=== PATIENT | male | born 1970 | race Caucasian/White ===

== ENCOUNTER 2023-09-01 06:53 | Outpatient (OUT) | payer BC, SELFPAY ==
[2023-09-01 07:13] LABS: Basophils Percent Auto 0.4 % (0.2-2.0); Eosinophils Absolute Auto 0.1 10^3/uL (0.0-0.7); Eosinophils Percent Auto 1.4 % (0.9-7.0); Hematocrit 42.4 % (42.0-54.0); Immature Granulocytes Abs Auto 0.01 10^3/uL (0.00-0.03); Immature Granulocytes Pct Auto 0.2 % (0.0-0.5); Lymphocytes Absolute Auto 2.1 10^3/uL (1.2-3.8); Lymphocytes Percent Auto 41.5 % (20.5-60.0); Mean Corpuscular Hemoglobin 30.8 pg (25.9-34.0); Mean Corpuscular Volume 93.4 fL (80.0-94.0); Mean Platelet Volume 11.1 fL (9.5-13.5); Monocytes Absolute Auto 0.5 10^3/uL (0.3-0.8); Monocytes Percent Auto 10.8 % (1.7-12.0); Neutrophils Absolute Auto 2.3 10^3/uL (1.4-6.5); Neutrophils Percent Auto 45.7 % (43.0-75.0); Platelet Count 192 10^3/uL (150-450); Red Blood Count 4.54 10^6/uL (4.70-6.10); Red Cell Distribution Width 12.7 % (11.0-15.0)
[2023-09-01 07:51] LABS: Alanine Aminotransferase 56 U/L (16-63); Albumin Globulin Ratio 0.8; Albumin Level 3.3 g/dL (3.4-5.0); Alkaline Phosphatase 56 U/L (46-116); Anion Gap 11.4; Aspartate Amino Transferase 32 U/L (15-37); BUN Creatinine Ratio 22.5; Bilirubin Total 0.3 mg/dL (0.2-1.0); Calcium 9.2 mg/dL (8.5-10.1); Carbon Dioxide 31.6 mmol/L (21.0-32.0); Chloride 102 mmol/L (98-107); Chol HDL Ratio 4.6; Cholesterol 204 mg/dL (<=200); Estimated GFR (African America >60 (>=60); Estimated GFR (Non-African Ame >60 (>=60); Globulin 4.1 g/dL; Glucose 107 mg/dL (74-106); HDL Cholesterol 44 mg/dL (40-60); Sodium 141 mmol/L (136-145); Total Protein 7.4 g/dL (6.4-8.2); Triglycerides 208 mg/dL (<=150); VLDL CHOLESTEROL 41.6 mg/dL
[2023-09-01 08:57] LABS: Free T4 0.82 ng/dL (0.76-1.46)
== END 2023-09-01 06:54 | disposition home or self-care (01) ==
LOC: LAB 06:53
PROVIDERS: PCP Family Medicine
DX: Z00.00 Encounter for general adult medical examination without abnormal findings (principal); I10 Essential (primary) hypertension; E78.2 Mixed hyperlipidemia; Z13.220 Encounter for screening for lipoid disorders; Z13.29 Encounter for screening for other suspected endocrine disorder; Z13.21 Encounter for screening for nutritional disorder; K21.9 Gastro-esophageal reflux disease without esophagitis; E55.9 Vitamin D deficiency, unspecified
CPT/HCPCS: 36415; 80053; 80061; 82306; 82607; 84439; 84443; 85025

== ENCOUNTER 2024-03-29 08:03 | Outpatient (OUT) | payer BC, SELFPAY ==
--- OUTSIDE RECORDS SUMMARY | 2024-03-29 08:10 | XMS_ITS | CCD ---
Author Organization [facility] Team Providers Care Locator Name Role Phone María Elena Teran Attending Unavailable ShadiuterbeckMaría Elena Admitting Unavailable KIEPERT, LUZ Admitting Unavailable KIEPERT, LUZ Attending Unavailable ANDINO, DR CHAPPELL Primary Care Unavailable KIEPERTLUZ Consulting Unavailable ANDINO, DR CHAPPELL Admitting Unavailable ANDINO, DR CHAPPELL Attending Unavailable ANDINO, DR CHAPPELL Primary Care Unavailable ANDINO, DR CHAPPELL Consulting Unavailable LAUSEEDWIN Attending Unavailable YESICA CUMMINGS Attending Unavailable Problems Problem Classification Problem Date Documented Da te Episodic/Chronic Disorders of lipid metabolism (4 sources) Mixed hyperlipidemia; Translations: [MIXED HYPERLIPIDEMIA] Onset: 07-01-2022 Chronic Essential hypertension (1 source) Essential (primary) hypertension; Translations: [ESSENTIAL PRIMARY HYPERTENSION] Onset: 07-05-2022 Chronic Unclassified (1 source) M54.2 - Cervicalgia; Translations: [M54.2 - Cervicalgia] Onset: 01-04-2019 Results Test Name Value Interpretation Reference Range Facil ity CBC AUTO DIFFon 09-16-2022 BASO # 0.0 103/ul Normal 0[facility]0-0.1 [facility] Comment on above: Performed By: #### C BC #### [facility] [address] [address] [address] Ramsey Telles Basophils/100 WBC (Bld) 0.2 % Normal 0.2-2.0 [facility] Comment on above: Performed By: #### C BC #### [facility] [address] [address] [address] Ramsey Telles EO # 0.1 103/ul Normal 0.0-0.7 [facility] Comment on above: Performed By: #### C BC #### [facility] [address] [place] [address] Dr. Ramsey Telles Eosinophils/100 WBC (Bld) 1.3 % Normal 0.9-7.0 [facility] Comment on above: Performed By: #### C BC #### [facility] [address] [place] [address] Dr. Ramsey Telles Erythrocyte distribution width (RBC) [Ratio] 12.8 % Normal 11.0-15.0 [facility] Comment on above: Performed By: #### C BC #### [facility] [address] [place] [address] Dr. Ramsey Telles Hematocrit (Bld) [Volume fraction] 41.9 % Critically low 42.0-54.0 [facility] Comment on above: Performed By: #### C BC #### [facility] [address] [place] [address] Dr. Ramsey Telles Hemoglobin (Bld) [Mass/Vol] 14.1 g/dL Normal 14.0-18.0 [facility] Comment on above: Performed By: #### C BC #### [facility] [address] [place] [address] Dr. Ramsey Telles IG # 0.01 10e3/ul Normal 0.00-0.03 [facility] Comment on above: Performed By: #### C BC #### [facility] [address] [place] [address] Dr. Ramsey Telles IG % 0.2 % Normal 0.0-0.5 [facility] Comment on above: Performed By: #### C BC #### [facility] [address] [place] [address] Dr. Ramsey Telles LYMPH # 1.9 103/ul Normal 1.2-3.8 [facility] Comment on above: Performed By: #### C BC #### [facility] [address] [place] [address] Dr. Ramsey Telles Lymphocytes/100 WBC (Bld) 40.3 % Normal 20.5-60.0 [facility] Comment on above: Performed By: #### C BC #### [facility] [address] [place] [address] Dr. Ramsey Telles MANUAL DIFF REQ NO Normal [facility] Comment on above: Performed By: #### C BC #### [facility] [address] [place] [address] Dr. Ramsey Telles MCH (RBC) [Entitic mass] 30.2 pg Normal 25.9-34.0 [facility] Comment on above: Performed By: #### C BC #### [facility] [address] [place] [address] Dr. Ramsey Telles MCHC (RBC) [Mass/Vol] 33.7 g/dL Normal 29.9-35.2 [facility] Comment on above: Performed By: #### C BC #### [facility] [address] [place] [address] Dr. Ramsey Telles MCV (RBC) [Entitic vol] 89.7 fL Normal 80.0-94.0 [facility] Comment on above: Performed By: #### C BC #### [facility] [address] [place] [address] Dr. Ramsey Telles MONO # 0.5 103/ul Normal 0.3-0.8 [facility] Comment on above: Performed By: #### C BC #### [facility] [address] [place] [address] Dr. Ramsey Telles Monocytes/100 WBC (Bld) 11.3 % Normal 1.7-12.0 [facility] Comment on above: Performed By: #### C BC #### [facility] [address] [place] [address] Dr. Ramsey Telles NEUT # 2.2 103/ul Normal 1.4-6.5 [facility] Comment on above: Performed By: #### C BC #### [facility] [address] [place] [address] Dr. Ramsey Telles Neutrophils/100 WBC (Bld) 46.7 % Normal 43.0-75.0 [facility] Comment on above: Performed By: #### C BC #### [facility] [address] [place] [address] Dr. Ramsey Telles Platelet mean volume (Bld) [Entitic vol] 10.8 fL Normal 9.5-13.5 [facility] Comment on above: Performed By: #### C BC #### [facility] [address] [place] [address] Dr. Ramsey Telles PLT 182 103/ul Normal 150-450 [facility] Comment on above: Performed By: #### C BC #### [facility] [address] [address] [address] Ramsey Telles RBC 4.67 106/ul Critically low 4.70-6.10 [facility] Comment on above: Performed By: #### C BC #### [facility] [address] [place] [address] Dr. Ramsey Telles WBC 4.6 103/ul Normal 4.0-11.0 [facility] Comment on above: Performed By: #### C BC #### [facility] [address] [place] [address] Dr. Ramsey Telles FERRITINon 09-16-2022 Ferritin [Mass/Vol] 323.0 ng/mL Normal 26.0-388.0 [facility] Comment on above: Performed By: #### F ETIBC, B12FOL, FERR #### [facility] [address] [place] [address] Dr. Ramsey Telles IRON AND TIBCon 09-16-2022 % SATURATION 30.0 % Normal [facility] Comment on above: Performed By: #### F ETIBC, B12FOL, FERR #### [facility] [address] [place] [address] Dr. Ramsey Telles Iron [Mass/Vol] 91.0 ug/dL Normal 65.0-175.0 [facility] Comment on above: Performed By: #### F ETIBC, B12FOL, FERR #### [facility] [address] [place] [address] Dr. Ramsey Telles TIBC DIRECT 303.0 ug/dL Normal 250.0-450.0 [facility] Comment on above: Performed By: #### F ETIBC, B12FOL, FERR #### [facility] [address] [place] [address] Dr. Ramsey Telles VIT B12 AND FOLATEon 023 Cobalamin (Vitamin B12) [Mass/Vol] 735.0 pg/mL Normal 193.0-986.0 [facility] Comment on above: Performed By: #### F ETIBC, B12FOL, FERR #### [facility] [address] [place] [address] Dr. Ramsey Telles FOLATE 16.70 ng/mL Normal 8.60-58.90 [facility] Comment on above: Performed By: #### F ETIBC, B12FOL, FERR #### [facility] [address] [place] [address] Dr. Ramsey Telles CBC AUTO DIFFon 07-01-2022 BASO # 0.0 103/ul Normal 0.0-0.1 [facility] Comment on above: Performed By: #### C BC #### [facility] [address] [place] [address] Dr. Ramsey Telles Basophils/100 WBC (Bld) 0.3 % Normal 0.2-2.0 [facility] Comment on above: Performed By: #### C BC #### [facility] [address] [place] [address] Dr. Ramsey Telles EO # 0.1 103/ul Normal 0.0-0.7 [facility] Comment on above: Performed By: #### C BC #### [facility] [address] [place] [address] Dr. Ramsey Telles Eosinophils/100 WBC (Bld) 1.3 % Normal 0.9-7.0 [facility] Comment on above: Performed By: #### C BC #### [facility] [address] [place] [address] Dr. Ramsey Telles Erythrocyte distribution width (RBC) [Ratio] 13.2 % Normal 11.0-15.0 [facility] Comment on above: Performed By: #### C BC #### [facility] [address] [place] [address] Dr. Ramsey Telles Hematocrit (Bld) [Volume fraction] 39.7 % Critically low 42.0-54.0 [facility] Comment on above: Performed By: #### C BC #### [facility] [address] [place] [address] Dr. Ramsey Telles Hemoglobin (Bld) [Mass/Vol] 13.5 g/dL Critically low 14.0-18.0 [facility] Comment on above: Performed By: #### C BC #### [facility] [address] [place] [address] Dr. Ramsey Telles IG # 0.01 10e3/ul Normal 0.00-0.03 [facility] Comment on above: Performed By: #### C BC #### [facility] [address] [place] [address] Dr. Ramsey Telles IG % 0.3 % Normal 0.0-0.5 [facility] Comment on above: Performed By: #### C BC #### [facility] [address] [place] [address] Dr. Ramsey Telles LYMPH # 1.7 103/ul Normal 1.2-3.8 [facility] Comment on above: Performed By: #### C BC #### [facility] [address] [place] [address] Dr. Ramsey Telles Lymphocytes/100 WBC (Bld) 44.1 % Normal 20.5-60.0 [facility] Comment on above: Performed By: #### C BC #### [facility] [address] [place] [address] Dr. Ramsey Telles MANUAL DIFF REQ NO Normal [facility] Comment on above: Performed By: #### C BC #### [facility] [address] [place] [address] Dr. Ramsey Telles MCH (RBC) [Entitic mass] 31.3 pg Normal 25.9-34.0 [facility] Comment on above: Performed By: #### C BC #### [facility] [address] [place] [address] Dr. Ramsey Telles MCHC (RBC) [Mass/Vol] 34.0 g/dL Normal 29.9-35.2 [facility] Comment on above: Performed By: #### C BC #### [facility] [address] [place] [address] Dr. Ramsey Telles MCV (RBC) [Entitic vol] 92.1 fL Normal 80.0-94.0 [facility] Comment on above: Performed By: #### C BC #### [facility] [address] [place] [address] Dr. Ramsey Telles MONO # 0.4 103/ul Normal 0.3-0.8 [facility] Comment on above: Performed By: #### C BC #### [facility] [address] [place] [address] Dr. Ramsey Telles Monocytes/100 WBC (Bld) 10.7 % Normal 1.7-12.0 [facility] Comment on above: Performed By: #### C BC #### [facility] [address] [place] [address] Dr. Ramsey Telles NEUT # 1.7 103/ul Normal 1.4-6.5 [facility] Comment on above: Performed By: #### C BC #### [facility] [address] [place] [address] Dr. Ramsey Telles Neutrophils/100 WBC (Bld) 43.3 % Normal 43.0-75.0 [facility] Comment on above: Performed By: #### C BC #### [facility] [address] [place] [address] Dr. Ramsey Telles Platelet mean volume (Bld) [Entitic vol] 11.0 fL Normal 9.5-13.5 [facility] Comment on above: Performed By: #### C BC #### [facility] [address] [place] [address] Dr. Ramsey Telles PLT 171 103/ul Normal 150-450 [facility] Comment on above: Performed By: #### C BC #### [facility] [address] [place] [address] Dr. Ramsey Telles RBC 4.31 106/ul Critically low 4.70-6.10 [facility] Comment on above: Performed By: #### C BC #### [facility] [address] [address] [address] Ramsey Telles WBC 3.8 103/ul Critically low 4.0-11.0 [facility] Comment on above: Performed By: #### C BC #### [facility] [address] [address] [address] Ramsey Telles FREE T4on 07-01-2022 Free T4 [Mass/Vol] 0.94 ng/dL Normal 0.76-1.46 [facility] Comment on above: Performed By: #### F T4, VITAD #### [facility] [address] [address] [address] Ramsey Telles LIPID PROFILEon 07-01-2022 CHOL-HDL RATIO NORM SEE BELOW Normal [facility] Comment on above: Result Comment: 3.3 - 4.4 LOW RISK 4.4 - 7.1 AVERAGE RISK 7.1 - 11.0 MODERATE RISK >11.0 HIGH RISK Performed By: #### L IPID, CMP, TSH #### [facility] [address] [address] [address] Ramsey Telles Cholesterol [Mass/Vol] 171 mg/dL Normal <=200 [facility] Comment on above: Performed By: #### L IPID, CMP, TSH #### [facility] [address] [address] [address] Ramsey Telles Cholesterol in HDL [Mass/Vol] 50 mg/dL Normal 40-60 [facility] Comment on above: Performed By: #### L IPID, CMP, TSH #### [facility] [address] [address] [address] Ramsey Telles Cholesterol in LDL [Mass/Vol] 108.4 mg/dL [facility] Comment on above: Performed By: #### L IPID, CMP, TSH #### [facility] [address] [address] [address] Ramsey Telles Cholesterol.total/C holesterol in HDL [Mass ratio] 3.4 {ratio} [facility] Comment on above: Performed By: #### L IPID, CMP, TSH #### [facility] [address] [address] [address] Ramsey Telles HDL NORMAL > or = 60 mg/dl - LOW CARDIOVASCULAR RISK <40 mg/dl - HIGH CARDIOVASCULAR RISK [facility] Comment on above: Performed By: #### L IPID, CMP, TSH #### [facility] [address] [address] [address] Ramsey Telles LDL CALC NORMAL SEE BELOW Normal [facility] Comment on above: Result Comment: <100 mg/dl OPTIMAL 100 - 129 mg/dl NEAR OR ABOVE OPTIMAL 130 - 159 mg/dl BORDERLINE HIGH 160 - 189 mg/dl HIGH >190 mg/dl VERY HIGH Performed By: #### L IPID, CMP, TSH #### [facility] [address] [address] [address] Ramsey Telles Triglyceride [Mass/Vol] 63 mg/dL Normal <=150 [facility] Comment on above: Performed By: #### L IPID, CMP, TSH #### [facility] [address] [address] [address] Ramsey Telles VLDL CALC 12.6 mg/dL [facility] Comment on above: Performed By: #### L IPID, CMP, TSH #### [facility] [address] [address] [address] Ramsey Telles PROF 14(COMP METB)on 022 Albumin [Mass/Vol] 3.6 g/dL Normal 3.4-5.0 [facility] Comment on above: Performed By: #### L IPID, CMP, TSH #### [facility] [address] [address] [address] Ramsey Telles Albumin/Globulin [Mass ratio] 1.1 {ratio} [facility] Comment on above: Performed By: #### L IPID, CMP, TSH #### [facility] [address] [address] [address] Ramsey Telles ALP [Catalytic activity/Vol] 45 U/L Critically low 46-116 [facility] Comment on above: Performed By: #### L IPID, CMP, TSH #### [facility] [address] [address] [address] Ramsey Telles ALT [Catalytic activity/Vol] 59 U/L Normal 16-63 [facility] Comment on above: Performed By: #### L IPID, CMP, TSH #### [facility] [address] [address] [address] Ramsey Telles Anion gap [Moles/Vol] 7.7 mmol/L [facility] Comment on above: Performed By: #### L IPID, CMP, TSH #### [facility] [address] [address] [address] Ramsey Telles AST [Catalytic activity/Vol] 35 U/L Normal 15-37 [facility] Comment on above: Performed By: #### L IPID, CMP, TSH #### [facility] [address] [address] [address] Ramsey Telles Bilirubin [Mass/Vol] 0.4 mg/dL Normal 0.2-1.0 [facility] Comment on above: Performed By: #### L IPID, CMP, TSH #### [facility] [address] [address] [address] Ramsey Telles Calcium [Mass/Vol] 8.7 mg/dL Normal 8.5-10.1 [facility] Comment on above: Performed By: #### L IPID, CMP, TSH #### [facility] [address] [address] [address] Ramsey Telles Chloride [Moles/Vol] 106 mmol/L Normal 98-107 [facility] Comment on above: Performed By: #### L IPID, CMP, TSH #### [facility] [address] [address] [address] Ramsey Telles CO2 [Moles/Vol] 32.3 mmol/L Critically high 21.0-32.0 [facility] Comment on above: Performed By: #### L IPID, CMP, TSH #### [facility] [address] [address] [address] Ramsey Telles Creatinine [Mass/Vol] 0.81 mg/dL Normal 0.70-1.30 [facility] Comment on above: Performed By: #### L IPID, CMP, TSH #### [facility] [address] [place] [address] Dr. Ramsey Telles EGFR-AF MOZAMBICAN >60 Normal >=60 [facility] Comment on above: Performed By: #### L IPID, CMP, TSH #### [facility] [address] [address] [address] Ramsey Telles EGFR-NON AF MOZAMBICAN >60 Normal >=60 [facility] Comment on above: Performed By: #### L IPID, CMP, TSH #### [facility] [address] [place] [address] Dr. Ramsey Telles Globulin (S) [Mass/Vol] 3.3 g/dL [facility] Comment on above: Performed By: #### L IPID, CMP, TSH #### [facility] [address] [place] [address] Dr. Ramsey Telles Glucose [Mass/Vol] 103 mg/dL Normal 74-106 [facility] Comment on above: Performed By: #### L IPID, CMP, TSH #### [facility] [address] [place] [address] Dr. Ramsey Telles Potassium [Moles/Vol] 4.0 mmol/L Normal 3.5-5.1 [facility] Comment on above: Performed By: #### L IPID, CMP, TSH #### [facility] [address] [place] [address] Dr. Ramsey Telles Protein [Mass/Vol] 6.9 g/dL Normal 6.4-8.2 [facility] Comment on above: Performed By: #### L IPID, CMP, TSH #### [facility] [address] [place] [address] Dr. Ramsey Telles Sodium [Moles/Vol] 142 mmol/L Normal 136-145 [facility] Comment on above: Performed By: #### L IPID, CMP, TSH #### [facility] [address] [place] [address] Dr. Ramsey Telles Urea nitrogen [Mass/Vol] 15.0 mg/dL Normal 7.0-18.0 [facility] Comment on above: Performed By: #### L IPID CMP, TSH #### [facility] [address] [address] [address] Ramsey Telles Urea nitrogen/Creatinine [Mass ratio] 18.5 mg/mg [facility] Comment on above: Performed By: #### L IPESTHELA CMP, TSH #### [facility] [address] [address] [address] Ramsey Telles TSHon 07-01-2022 TSH 1.371 uIU/mL Normal 0.358-3.740 [facility] Comment on above: Performed By: #### L IPID CMP, TSH #### [facility] [address] [address] [address] Ramsey Telles VITAMIN D 25 OHon 07-01-2022 VIT D 25-OH 44.2 ng/mL [facility] Comment on above: Performed By: #### F T4, VITAD #### [facility] [address] [place] [address] Dr. Ramsey Telles VIT D RANGES SEE BELOW [facility] Comment on above: Result Comment: <20 ng/mL Vit D deficient 20 - <30 ng/mL Vit D insufficient 30 - 100 ng/mL Vit D sufficient >100 ng/mL Potential Toxicity Performed By: #### F T4, VITAD #### [facility] [address] [place] [address] Dr. Ramsey Telles XR cervical spine 5V*on XR cervical spine 5V* [facility] [address] [place] [address] XRay Report Signed Patient: Fredo Luke MR#: [id number] : 1970 Acct:[id number] Age/Sex: 48 / M ADM Date: 01/04/19 Loc: XDUCLY Room: Type: [facility] Attending Dr: María Elena Teran VERIFICATION MANAGER, INTERACTIVE DESIGNER-C Ordering Provider: María Elena Teran APRN,[employer]UCATION TEACHER Date of Service: 01/04/19 XR/XR cervical spine 5V*: Neck pain on right side Copies to: María Elena Teran APRN, CNP Cervical spine 01/04/2019. CLINICAL DATA: Neck pain and stiffness. FINDINGS: 5 views of the cervical spine were obtained. There is loss of the normal cervical lordosis which could be related to muscle spasm or patient positioning. Vertebral alignment is normal and the intervertebral disc spaces are intact. Early discovertebral degenerative changes are identified at C4-C5. There is mild bony neural foraminal narrowing at this level on the right. No acute vertebral fracture is seen. The dens and the atlantoaxial junction are intact. No prevertebral soft tissue swelling is noted. XR/XR cervical spine 5V* IMPRESSION: Early degenerative changes at C4-C5. No acute bony abnormality. Impression dictated by: Toño Lopez Jr., M.D.01/04/2019 10:18 AM Dictation Location: [facility] Transcribed By: [facility] 01/04/19 1018 Dictated By: Toño Lopez Jr, MD 01/04/19 1015 Signed By: 01/04/19 1018 Normal [facility] Encounters Encounter Date Encounter Type Care Provider Facility Start: 03-18-2024 End: 03-18-2024 ambulatory YESICA CUMMINGS Not Available Start: 12-26-2023 End: 12-26-2023 ambulatory EDWIN KOHLER Not Available Start: 09-16-2022 End: 09-17-[address] AT ANDINO Facility:[facility] Start: 07-01-2022 End: 07-02-2022 ambulatory LUZ MARIE Facility:[facility] Start: 01-04-2019 End: 01-04-2019 Patient encounter procedure María Elena Teran Facility:[facility] Payers Date Payer Category Payer Self-pay 1970 Unknown [id number] [id number] [id number] 1970 Unknown [id number] 2.16.84 [id number] 1970 Unknown [id number] 2.16.84 [id number] 1970 Unknown [id number] 2.16.84 [id number] 1958 Unknown [id number] Unknown [id number] 2.16.84 [id number] Summary Purpose Family History No Family History Records FoundNo Family History Records FoundNo Family History Records Found Advance Directives No Advanced Directives Records FoundNo Advanced Directives Records FoundNo Advanced Directives Records Found Additional Source Comments (unrecognized sect ion and content) No Status Records FoundNo Status Records FoundNo Status Records Found INFORMATION SOURCE (unrecogn ized section and content) DATE CREATED AUTHOR 01/15/2019 [facility] DATE CREATED AUTHOR AUTHOR'S ORGANIZ ATION 09/16/2022 [facility] DATE CREATED AUTHOR AUTHOR'S ORGANIZ ATION 03/22/2024 [facility] FOR RECORDS PERTAINING TO PATIENTS WHO ARE OR HAVE BEEN ENROLLED IN A CHEMICAL DEPENDENCY/SUBSTANCEABUSE PROGRAM, SOME INFORMATION MAY BE OMITTED. This clinical summary was aggregated from multiple sources. Caution should be exercised in using it in the provision of clinical care. This summary normalizes information from multiple sources, and as a consequence, information in this document may materially change the coding, format and clinical context of patient data. In addition, data may be omitted in some cases. CLINICAL DECISIONS SHOULD BE BASED ON THE PRIMARY CLINICAL RECORDS. [facility] [employer] provides no warranty or guarantee of the accuracy or completeness of information in this document.
[2024-03-29 08:37] LABS: Basophils Percent Auto 0.6 % (0.2-2.0); Eosinophils Absolute Auto 0.1 10^3/uL (0.0-0.7); Eosinophils Percent Auto 1.2 % (0.9-7.0); Hematocrit 41.2 % (42.0-54.0); Hemoglobin 14.3 g/dL (14.0-18.0); Immature Granulocytes Abs Auto 0.01 10^3/uL (0.00-0.03); Immature Granulocytes Pct Auto 0.2 % (0.0-0.5); Lymphocytes Percent Auto 39.7 % (20.5-60.0); Mean Corpuscular HGB Conc 34.7 g/dL (29.9-35.2); Mean Corpuscular Hemoglobin 31.9 pg (25.9-34.0); Mean Platelet Volume 11.6 fL (9.5-13.5); Monocytes Absolute Auto 0.5 10^3/uL (0.3-0.8); Monocytes Percent Auto 9.5 % (1.7-12.0); Neutrophils Absolute Auto 2.5 10^3/uL (1.4-6.5); Neutrophils Percent Auto 48.8 % (43.0-75.0); Platelet Count 182 10^3/uL (150-450); Red Blood Count 4.48 10^6/uL (4.70-6.10); Red Cell Distribution Width 12.7 % (11.0-15.0)
[2024-03-29 09:15] LABS: Percent Iron Saturation 31.7 %
[2024-04-01 20:10] LABS: Free Testosterone(Direct) 4.3 pg/mL (7.2-24.0); Testosterone 413 ng/dL (264-916)
== END 2024-03-29 08:04 | disposition home or self-care (01) ==
PROVIDERS: PCP Family Medicine
DX: R53.83 Other fatigue (principal); E55.9 Vitamin D deficiency, unspecified
CPT/HCPCS: 36415; 82306; 82607; 83540; 83550; 84402; 84403; 85025

== ENCOUNTER 2024-07-18 16:17 | Outpatient (RCR) | payer BC, SELFPAY | END 2024-08-15 08:55 | disposition home or self-care (01) | LOC: PT 16:17 | PROVIDERS: PCP Family Medicine; Visit Provider Nurse Practitioner | DX: M54.32 Sciatica, left side (principal) | CPT/HCPCS: 97110; 97112; 97140; 97162 ==

== ENCOUNTER 2025-01-31 06:59 | Outpatient (OUT) | payer BC, SELFPAY ==
--- OUTSIDE RECORDS SUMMARY | 2025-01-27 16:05 | XMS_ITS | Encounter Summary ---
Author Organization [facility] Address [address] [place] [address] Care Team Providers Care Industrial Servicer Name Role Phone Oscar Rodriguez MD Primary Care Provider [phone] Jonna Boone BRAND SPECIALIST Unavailable [phone] Angela Serna MD Unavailable [phone] ShellMatti DO Unavailable [phone] Encounter Details Date Type Department Care Team (Late st Contact Info) Description 01/27/2025 4:05 PM EDT Office Visit [facility] [address] [facility] [address] [place] [phone] Angela Serna MD [address] [facility] [address] [place] [address] Capillary angioma (Primary Dx); Actinic keratosis; Lentigines; History of SCC (squamous cell carcinoma) of skin; History of basal cell carcinoma Social History Tobacco Use Types Packs/Day Years Used Date Smoking Tobacco: Never Smokeless Tobacco: Never Alcohol Use Standard Drinks/Week Comments Not Currently 0 (1 standard drink = 0.6 oz pure alcohol) caffeine >4 cups/day; coffee/soda Humiliation, Afraid, Rape, and Kick questionnair e Answer Date Recorded Within the last year, have y ou been afraid of your partner or ex-partner? No 07/03/2023 Within the last year, have y ou been humiliated or emotionally abused in other ways by your partner or ex-partner? No Within the last year, have y ou been kicked, hit, slapped, or otherwise physically hurt by your partner or ex-partner? No 07/03/2023 Within the last year, have y ou been raped or forced to have any kind of sexual activity by your partner or ex-partner? No 07/03/2023 Social Connection and Isolat ion Panel [NHANES] Answer Date Recorded In a typical week, how many times do you talk on the phone with family, friends, or neighbors? More than three times a week 07/03/2023 How often do you get togethe r with friends or relatives? Patient declined 07/03/2023 How often do you attend chur or yazdanism services? Patient declined 07/03/2023 Do you belong to any clubs o r organizations such as islam groups, unions, fraternal or athletic groups, or school groups? Patient declined 07/03/2023 How often do you attend meet ings of the clubs or organizations you belong to? Patient declined 07/03/2023 Are you , , di vorced, , never , or living with a partner? 07/03/2023 AUDIT-C Answer Date Recorded Q1: How often do you have a drink containing alcohol? Never 01/07/2025 Q2: How many drinks containi ng alcohol do you have on a typical day when you are drinking? Patient does not drink Q3: How often do you have si x or more drinks on one occasion? Never 01/07/2025 Overall Financial Resource Strain (CARDIA) Answe r Date Recorded How hard is it for you to pa y for the very basics like food, housing, medical care, and heating? Not very hard 07/03/2023 PHQ-2 Answer Date Recorded Patient Health Questionnaire-2 Score 0 01/07/2025 [facility] - Occupational Stress Questionnaire Answer Date Recorded Do you feel stress - tense, restless, nervous, or anxious, or unable to sleep at night because your mind is troubled all the time - these days? Not at all 07/03/2023 Exercise Vital Sign Answer Date Recorde d On average, how many days pe r week do you engage in moderate to strenuous exercise (like a brisk walk)? 0 days 07/03/2023 On average, how many minutes do you engage in exercise at this level? 0 min 07/03/2023 Hunger Vital Sign Answer Date Recorded Within the past 12 months, y ou worried that your food would run out before you got the money to buy more. Never true 07/03/20 23 Within the past 12 months, t he food you bought just didn't last and you didn't have money to get more. Never true 07/03/2023 PRAPARE - Transportation Answer Date Re corded In the past 12 months, has l ack of transportation kept you from medical appointments or from getting medications? No 06/05 In the past 12 months, has l ack of transportation kept you from meetings, work, or from getting things needed for daily living? No 07/03/2023 Housing Stability Vital Sign Answer Alex e Recorded In the last 12 months, was t here a time when you were not able to pay the mortgage or rent on time? No 07/03/2023 In the last 12 months, how many places have you lived? 1 07/03/2023 In the last 12 months, was t here a time when you did not have a steady place to sleep or slept in a longterm (including now)? No 07/03/2023 Sex and Gender Information Value Date Recorded Sex Assigned at Not on file Legal Sex Male 6:37 PM EDT Gender Identity Male 06/05/2023 9:27 PM EDT Sexual Orientation Not on file documented as of this encounter Progress Notes * Angela Serna MD - 01/27/2025 4:05 PM EDT Skin Check Location: Patient requests a skin examination from the waist up Dermatologic history: history of Actinic Keratosis, history of Basal Cell Carcinoma, history of Squamous Cell Carcinoma Last visit: 6 months ago Has used Efudex in the past. Used to scalp and had good response. Established patient All pertinent medical history, medications, and allergies were reviewed. General Exam: alert, oriented to person, place, and time, normal affect, well appearing Unaccompanied A complete skin exam was offered, pt declined. Areas not examined despite medical recommendation: From the waist down Scalp, Examined , exam limited by hair Head, Face Examined Neck Examined Chest Examined Back Examined Abdomen Examined Right arm Examined Left arm Examined Hands Examined Digits,nails: Examined Lymphatics: Not examined Skin Exam 1. CAPILLARY ANGIOMA Torso - Posterior (Back) Scattered friedman-red papule(s). The patient was informed that angiomas are benign growths on the the skin. No treatment is necessary. 2. ACTINIC KERATOSIS (7) Left Hand - Posterior, Left Postauricular Area, Left Scaphoid Fossa, Mid Parietal Scalp (3), Right Mid [place] Erythematous scaly papules Patient was counseled regarding these sun-induced growths that can develop into squamous cell carcinoma if left untreated. Discussed treatment with cryotherapy. It was emphasized that any treated lesions that fail to resolve should be re- evaluated. Cryotherapy performed today; see procedure note Diagnosis: Actinic keratosis Indication: Precancerous Location: see skin exam Consent: Verbal consent was obtained and risks were discussed, including, but not limited to risks of scarring, darker or runner worker pigmentary changes, recurrence, incomplete removal and infection. Method: Liquid nitrogen was used to treat the lesion(s) with two 5-10 second freeze-thaw cycles. Number of lesions treated: 7 Post-procedure instructions: Instructions were given orally and in writing. The office will be contacted if the lesion fails to resolve despite treatment, or if a side effect develops such as abnormal crusting, scabbing, redness or tenderness Cryotherapy, skin lesion - Left Hand - Posterior, Left Postauricular Area, Left Scaphoid Fossa, MidParietal Scalp (3), Right Mid [place] 3. LENTIGINES (2) Generalized, Head - Anterior (Face) Scattered jonas macules in sun-exposed areas. The patient was informed that lentigines are benign pigmented lesions that occur on sun-exposed andsun-damaged skin. No treatment is necessary. Recommended regular use of broad spectrum sunscreen SPF 30 or higher 4. HISTORY OF SCC (SQUAMOUS CELL CARCINOMA) OF SKIN (2) Left Cheek, Left Posterior Ear No evidence of recurrence at SCC scar. The patient was counseled that scars from excisional sites of nonmelanoma skin cancers should be monitored closely for recurrence. The patient was instructed to contact the office for any new, changing, or symptomatic moles. The patient was also instructed to contact the office for any new lesions that develop within or around the previous surgery scar. 5. HISTORY OF BASAL CELL CARCINOMA Right Forehead No evidence of recurrence at BCC scar. The patient was counseled that scars from excisional sites of nonmelanoma skin cancers should be monitored closely for recurrence. The patient was instructed to contact the office for any new, changing, or symptomatic moles. The patient was also instructed to contact the office for any new lesions that develop within or around the previous surgery scar. Next Visit: 6 months documented in this encounter Plan of Treatment Upcoming Encounters Date Type Department Care Team (Late st Contact Info) Description 08/04/2025 4:00 PM EST Office Visit [facility] [address] [place] [address] Angela Serna MD [address] [place] [address] 01/07/2026 4:40 PM EDT Office Visit [facility] [address] [place] [address] Jonna Boone BRAND SPECIALIST [address] [place] [address] documented as of this encounter Procedures Procedure Name Priority Date/Time Associated Diagnosis Comments CRYOTHERAPY SKIN LESION Routine 01/27/2025 4:02 P M EDT Actinic keratosis documented in this encounter Results * Cryotherapy, skin lesion (01/27/2025 4:02 PM EDT) us Angela Serna MD DERM PROCEDURE ORDERABLES Fin al Result documented in this encounter Visit Diagnoses Diagnosis Capillary angioma- Primary Nevus, non-neoplastic Actinic keratosis Lentigines History of SCC (squamous cell carcinoma) of skin Personal history of other malignant neoplasm of skin History of basal cell carcinoma Personal history of other malignant neoplasm of skin documented in this encounter Care Teams Industrial Servicer Relationship Specialty Start Date End Date Oscar Rodriguez MD [address] [place] [address] PCP - General Family Medicine 01/09/23 Jonna Boone, BRAND SPECIALIST [address] [place] [address] Nurse Practitioner Pulmonary Disease 06/29/23 Angela Serna MD [address] [place], [place] [id number] Referring Physician Dermatology 05/28/24 Matti Goff DO [address] [place] [address] Otolaryngology 05/28/24 documented as of this encounter
--- OUTSIDE RECORDS SUMMARY | 2025-01-31 07:01 | XMS_ITS | Clinical Summary ---
Author Organization [facility] Address [address] [place], [place] [id number] Care Team Providers Care Chief Lifestyle Officer Name Role Phone Oscar Rodriguez MD Primary Care Provider Medications PREDNISONE 20MG TABLET Take one(1) tablet daily. for 4 days then taper to 10 for 4 days. 0 09/25/2003 Active Social History Tobacco Use Types Packs/Day Years Used Date Smoking Tobacco: Never Assessed Sex and Gender Information Value Date Recorded Sex Assigned at Not on file Legal Sex Male 10:01 AM EST Gender Identity Not on file Sexual Orientation Not on file Last Filed Vital Signs Vital Sign Reading Time Taken Comments Blood Pressure 216/90 09/25/2003 9:30 AM EST Pulse 80 09/25/2003 9:30 AM EST Temperature - - Respiratory Rate - - Oxygen Saturation - - Inhaled Oxygen Concentration - - Weight 99.3 kg (219 lb) 09/25/2003 9:30 AM EST Height - - Body Mass Index - - Plan of Treatment Health Maintenance Due Date Last Done Comments Anxiety Screening 12/06/1989 Depression Screening 12/06/1989 HIV Screening 12/06/1989 Hepatitis C Screening 12/06/1989 DTaP,Tdap,Td Vaccine (1 - Tdap) 12/06/1990 Hepatitis B Vaccine (1 of 3 - 19+ 3-dose series) 12/06 Lipid Screening 12/06/2006 CT Colonography 12/06/2016 Cologuard (FIT-DNA) 12/06/2016 Colonoscopy 12/06/2016 Colorectal Cancer Screening 12/06/2016 Diabetes Screening 12/06/2016 Fecal Occult Blood 12/06/2016 Sigmoidoscopy 12/06/2016 Pneumococcal Vaccine: 50+ (1 of 1 - PCV) 12/06/2021 Shingrix Vaccine (1 of 2) 12/06/2021 Covid-19 Vaccine (1 - season) 2024 Influenza Vaccine (Season Ended) 2025 Care Teams Chief Lifestyle Officer Relationship Specialty Start Date End Date Oscar Rodriguez MD [address] [place] [address] PCP - General 09/25/03
--- OUTSIDE RECORDS SUMMARY | 2025-01-31 07:01 | XMS_ITS | Clinical Summary ---
Author Organization [facility] Address [address] [place] [address] Care Team Providers Care Airconditioning Engineer Name Role Phone Oscar Rodriguez MD Primary Care Provider [phone] Social History Tobacco Use Types Packs/Day Years Used Date Smoking Tobacco: Never Assessed Sex and Gender Information Value Date Recorded Sex Assigned at Not on file Legal Sex Male 2:05 PM EST Gender Identity Not on file Sexual Orientation Not on file Plan of Treatment Not on file Care Teams Airconditioning Engineer Relationship Specialty Start Date End Date Oscar Rodriguez MD PCP - General 04/09/12
--- OUTSIDE RECORDS SUMMARY | 2025-01-31 07:01 | XMS_ITS | Encounter Summary ---
Author Organization [facility] Address [address] [place] [address] Care Team Providers Care Cryptologic Supervisor Name Role Phone Oscar Rodriguez MD Primary Care Provider Jonna Boone NP Unavailable [phone] Angela Serna MD Unavailable [phone] HunglynnMatti DO Unavailable [phone] Encounter Details Date Type Department Care Team (Late st Contact Info) Description 01/27/2025 Bamboo flowsheet [facility] [address] [facility] [address] [place] [address] Angela Serna MD [address] [facility] [address] [place] [address] Social History Tobacco Use Types Packs/Day Years [...] declined 07/03/2023 How often do you attend [facility] or hinduism services? Patient declined 07/03/2023 Do you belong to any clubs o r organizations such as pentecostal groups, unions, fraternal or athletic groups, or [...] Recorded Patient Health Questionnaire-2 Score 0 01/07/2025 [facility] - Occupational Stress Questionnaire Answer Date [...] place to sleep or slept in a [place] facility (including now)? No 07/03/2023 Sex and Gender Information Value Date Recorded Sex Assigned at Not on file Legal Sex Male 6:37 PM EDT Gender Identity Male 06/05/2023 9:27 PM EDT Sexual Orientation Not on file documented as of this encounter Plan of Treatment Upcoming Encounters Date Type Department Care Team (Late st Contact Info) Description 08/04/2025 4:00 PM EST Office Visit [facility] [address] [place] [phone] Angela Serna MD [address] [place] [address] 01/07/2026 4:40 PM EDT Office Visit [facility] [address] [place] [address] Jonna Boone NP [address] [place] [address] documented as of this encounter Visit Diagnoses Not on filedocumented in this encounter Care Teams Cryptologic Supervisor Relationship Specialty Start Date End Date Oscar Rodriguez MD [address] [place] [address] PCP - General Family Medicine 01/09/23 Jonna Boone NP [address] [place] [address] Nurse Practitioner Pulmonary Disease 06/29/23 Angela Serna MD [address] [place] [address] Referring Physician Dermatology 05/28/24 Matti Goff DO [address] [place] [address] Otolaryngology 05/28/24 documented as of this encounter
--- OUTSIDE RECORDS SUMMARY | 2025-01-31 07:01 | XMS_ITS | Encounter Summary ---
Author Organization [facility] Address [address] [place] [address] Care Team Providers Care Leather Leveler Name Role Phone Oscar Rodriguez MD Primary Care Provider [phone] Jonna Boone PRODUCTION SUPERINTENDENT HYDRO Unavailable [phone] Angela Serna MD Unavailable [phone] Matti Goff DO Unavailable [phone] Encounter Details Date Type Department Care Team (Latest Contact Info) Description 01/27/2025 Travel Social History Tobacco Use Types Packs/Day Years [...] How often do you attend chur or sabianist services? Patient declined 07/03/2023 Do you belong to any clubs o r organizations such as synagogue groups, unions, fraternal or athletic groups, or [...] Recorded Patient Health Questionnaire-2 Score 0 01/07/2025 [facility] - Occupational Stress Questionnaire Answer Date [...] place to sleep or slept in a [facility]cf (including now)? No 07/03/2023 Sex and Gender [...] DERM [address] [place] [address] Angela Serna MD [address] [facility] [address] [place] [address] 01/07/2026 4:40 PM EDT Office Visit [facility] [address] [place] [address] Jonna Boone NP [address] [place] [address] documented as of this encounter Visit Diagnoses Not on filedocumented in this encounter Care Teams Leather Leveler Relationship Specialty Start Date End Date Oscar Rodriguez MD [address] [place] [address] PCP - General Family Medicine 01/09/23 Jonna Boone NP [address] [place] [address] Nurse Practitioner Pulmonary Disease 06/29/23 Angela Serna MD [address] [place] [address] Referring Physician Dermatology 05/28/24 Matti Goff DO [address] [place] [address] Otolaryngology 05/28/24 documented as of this encounter
--- OUTSIDE RECORDS SUMMARY | 2025-01-31 07:01 | XMS_ITS | Encounter Summary ---
Author Organization [facility] Address [address] [facility] [place] [address] Care Team Providers Care Molded Grid And Parts Inspector Name Role Phone Oscar Rodriguez MD Primary Care Provider [phone] Theodora Gamble NP Unavailable Jonna Boone SEBD TEACHER Unavailable [phone] Jonna Boone SEBD TEACHER Unavailable [phone] Angela Serna MD Unavailable [phone] Matti Goff DO Unavailable Encounter Details Date Type Department Care Team (Late st Contact Info) Description 04/07/2024 External Result Encounter [facility] External Department Unsolicited Matti Goff, DO [address] [place] [address] Social History Tobacco Use Types Packs/Day Years [...] How often do you attend chur or adventism services? Patient declined 07/03/2023 Do you belong to any clubs o r organizations such as presybeterian groups, unions, fraternal or athletic groups, or school groups? Patient declined 07/03/2023 How often do you attend meet ings of the clubs or organizations you belong to? Patient declined 07/03/2023 Are you , , di vorced, , never , or living with a partner? 07/03/2023 AUDIT-C Answer Date Recorded Q1: How often do you have a drink containing alc ohol? Monthly or less 07/03/2023 Q2: How many drinks containi ng alcohol do you have on a typical day when you are drinking? 1 or 2 07/03/2023 Q3: How often do you have si x or more drinks on one occasion? Never 07/03/2023 Overall Financial Resource Strain (CARDIA) Answe r Date Recorded How hard is it for you to pa y for the very basics like food, housing, medical care, and heating? Not very hard 07/03/2023 [facility] - Occupational [...] place to sleep or slept in a long term (including now)? No 07/03/2023 Sex and Gender Information Value Date Recorded Sex Assigned at Not on file Legal Sex Male 6:37 PM EDT Gender Identity Male 06/05/2023 9:27 PM EDT Sexual Orientation Not on file documented as of this encounter Plan of Treatment Upcoming Encounters Date Type Department Care Team (Late st Contact Info) Description 08/04/2025 4:00 PM EST [facility] [address] [place] [address] Angela Serna MD [address] [place] [address] 01/07/2026 4:40 PM EDT Office Visit [facility] [address] [place] [address] Jonna Boone NP [address] [place] [address] documented as of this encounter Procedures Procedure Name Priority Date/Time Associated Diagnosis Comments ECG 12-LEAD 04/07/2024 6:54 AM EDT documented in this encounter Results * ECG 12 lead (04/07/2024 6:54 AM EDT) 04/07/2024 6:54 AM EDT [facility] - 04/22/2024 11:55 AM EDT [facility] Main [place] [id number] Electrocardiograph Report Signed Patient: Fredo George MR#: [id number] : 1970 Acct:[id number] Age/Sex: 53 / M ADM Date: 04/07/24 Loc: PS Room: Type: DEP CLI Attending Dr: Matti Goff DO Ordering Provider: Matti Goff DO Date of Service: 04/07/2401/25/644 ECG/ECG 12 lead ECG: surgery 04/21/24 Copies to: Test Reason : Blood Pressure : */* mmHG Vent. Rate : 59 BPM Atrial Rate : 59 BPM P-R Int : 180 ms QRS Dur : 116 ms QT Int : 418 ms P-R-T Axes : 15 -4 -4 degrees QTcB Int : 413 ms Sinus bradycardia Otherwise normal ECG No previous ECGs available Confirmed by Erica Bella ([id number]) on 04/09/2024 7:12:19 PM Referred By: Electronically Signed By: Erica Bella Transcribed By: MUS Signed By Erica Bella DO [id number] Procedure Note Radiology, Radiologist, MD - 04/22/2024 [place] [id number] Electrocardiograph Report Signed Patient: Fredo George EMR#: [id number] : 1970Acct:[id number] Age/Sex: 53 / MADM Date: 04/07/24 Loc: PS Room:Type: DEP CLI Attending Dr: Matti Goff DO Ordering Provider: Matti Goff DO Date of Service: 04/07/2401/25/644 ECG/ECG 12 lead ECG: surgery 04/21/24 Copies to: Test Reason : Blood Pressure : */* mmHG Vent. Rate : 59 BPM Atrial Rate : 59 BPM P-R Int : 180 ms QRS Dur : 116 ms QT Int : 418 ms P-R-T Axes : 15 -4 -4 degrees QTcB Int : 413 ms Sinus bradycardia Otherwise normal ECG No previous ECGs available Confirmed by Erica Bella ([id number]) on 04/09/2024 7:12:19 PM Referred By: Electronically Signed By: Erica Bella Transcribed By: MUS Signed By Erica Bella DO 4 191 us Matti Goff DO ECG ORDERABLES Final Resul t [facility] [address] [place] [address], documented in this encounter Visit Diagnoses Not on filedocumented in this encounter Care Teams Molded Grid And Parts Inspector Relationship Specialty Start Date End Date Oscar Rodriguez MD [address] [place] [address] PCP - General Family Medicine 01/09/23 Jonna Boone NP [address] [place] [address] PCP - [facility] 03/03/24 Theodora Gamble NP [address] [place] [address] Nurse Practitioner Family Medicine 06/29/23 01/01/25 Jonna Boone NP [address] [place] [address] Nurse Practitioner Pulmonary Disease 06/29/23 Angela Serna MD [address] [place] [address] Referring Physician Dermatology 05/28/24 Matti Goff, [address] [place] [address] Otolaryngology 05/28/24 documented as of this encounter
--- OUTSIDE RECORDS SUMMARY | 2025-01-31 07:01 | XMS_ITS | Clinical Summary ---
Author Organization [facility] Address [address] [place] [address] Care Team Providers Care Pinked Edge Sewing Machine Operator Name Role Phone Oscar Rodriguez MD Primary Care Provider [phone] Jonan Boone NP Unavailable [phone] Angela Serna MD Unavailable [phone] Matti Goff DO Unavailable [phone] Allergies No known active allergies Medications Multiple Vitamin (multivitamin) capsule Take 1 capsule by mouth Daily Active atorvastatin (Lipitor) 20 MG tabletIndications :Mixed hyperlipidemia (CMS/HCC) Take 1 tablet (20 mg) by mouth 1 (one) time each day at the same time 90 tablet 3 01/08/20 25 026 Active lisinopril-hydroC HLOROthiazide 20-25 MG tabletIndications :Essential hypertension (CMS/HCC) Take 1 tablet by mouth 1 (one) time each day at the same time 90 tablet 3 01/08/20 25 026 Active omeprazole (PriLOSEC) [address] capsuleIndication s:Gastroesophagea l reflux disease without esophagitis Take 1 capsule (20 mg) by mouth 1 (one) time each day at the same time 90 capsule 3 01/08/20 25 026 Active saccharomyces boulardii (Florastor) 250 MG capsule Take 250 mg by mouth in the morning and 250 mg before bedtime. 025 Discontinued(T herapy completed) atorvastatin (Lipitor) 20 MG tabletIndications :Mixed hyperlipidemia (CMS/HCC) Take 1 tablet (20 mg) by mouth 1 (one) time each day at the same time 90 tablet 3 07/09/20 24 025 Discontinued(R eorder) lisinopril-hydroC HLOROthiazide 20-25 MG tabletIndications :Essential hypertension (CMS/HCC) Take 1 tablet by mouth 1 (one) time each day at the same time 90 tablet 3 07/09/20 24 025 Discontinued(R eorder) omeprazole (PriLOSEC) [address] capsuleIndication s:Gastroesophagea l reflux disease without esophagitis Take 1 capsule (20 mg) by mouth 1 (one) time each day at the same time 90 capsule 3 07/09/20 24 025 Discontinued(R eorder) fluorouracil (Efudex) 5 % creamIndications: Actinic keratosis Apply to directed areas on the scalp twice a day x 14 days. Dispense 30 day supply but only use for 14 days. 40 g 07/29/20 24 025 Discontinued(T herapy completed) omeprazole (PriLOSEC) [address] capsuleIndication s:Gastroesophagea l reflux disease without esophagitis Take 1 capsule (20 mg) by mouth 1 (one) time each day at the same time 90 capsule 3 01/08/20 25 025 Discontinued lisinopril-hydroC HLOROthiazide 20-25 MG tabletIndications :Essential hypertension (CMS/HCC) Take 1 tablet by mouth 1 (one) time each day at the same time 90 tablet 3 01/08/20 25 025 Discontinued atorvastatin (Lipitor) 20 MG tabletIndications :Mixed hyperlipidemia (CMS/HCC) Take 1 tablet (20 mg) by mouth 1 (one) time each day at the same time 90 tablet 3 01/08/20 25 025 Discontinued Active Problems Problem Noted Date Diagnosed Date Essential hypertension 06/13/2023 Mixed hyperlipidemia 06/13/2023 Vitamin D deficiency 06/13/2023 Encounters Date Type Department Care Team Description 01/27/2025 4:05 PM EDT Office Visit [facility] [address] [place] [address] Angela Serna MD Capillary angioma (Primary Dx); Actinic keratosis; Lentigines; History of SCC (squamous cell carcinoma) of skin; History of basal cell carcinoma 01/27/2025 Bamboo flowsheet [facility] [address] [place] [id number] Angela Serna MD 01/27/2025 Travel 01/07/2025 4:40 PM EDT Follow-Up [facility] [address] [place] [id number] Jonna Boone NP Adult wellness visit (Primary Dx); Gastroesophageal reflux disease without esophagitis; Essential hypertension (CMS/HCC); Mixed hyperlipidemia (CMS/HCC) 01/07/2025 Travel 11/06/2024 Abstract [facility] [address] [place] [address] Jonna Boone NP from Last 3 Months Family History Medical History Relation Name Comments Cancer Father .. Bladder cancer Dementia Father .. Diabetes Father .. Heart disease Father .. Hypertension Father .. Melanoma Father .. Heart disease Maternal Grandfather .. Hypertension Maternal Grandfather .. Lung cancer Maternal Grandmother Stroke Maternal Grandmother Hypertension Paternal Grandfather . Breast cancer Paternal Grandmother Relation Name Status Comments Father .. Maternal Grandfather .. Maternal Grandmother Mother Alive Paternal Grandfather . Paternal Grandmother Social History Tobacco Use Types Packs/Day Years Used Date Smoking Tobacco: Never Smokeless Tobacco: Never Tobacco Cessation:Counseling Given: Not Answered Alcohol Use Standard Drinks/Week Comments Not Currently [...] declined 07/03/2023 How often do you attend [facility] or faith services? Patient declined 07/03/2023 Do you belong to any clubs o r organizations such as sikhism groups, unions, fraternal or athletic groups, or [...] Recorded Patient Health Questionnaire-2 Score 0 01/07/2025 [facility] of Occupat ional Health - Occupational Stress [...] place to sleep or slept in a senior living (including now)? No 07/03/2023 Sex and Gender Information Value Date Recorded Sex Assigned at Not on file Legal Sex Male 6:37 PM EDT Gender Identity Male 06/05/2023 9:27 PM EDT Sexual Orientation Not on file Last Filed Vital Signs Vital Sign Reading Time Taken Comments Blood Pressure 140/82 01/07/2025 4:58 PM EDT Pulse 80 01/07/2025 4:58 PM EDT Temperature 36.8 C (98.2 F) 01/07/2025 4:58 PM EDT Respiratory Rate 20 01/07/2025 4:58 PM EDT Oxygen Saturation 97% 01/07/2025 4:58 PM EDT Inhaled Oxygen Concentration - - Weight 112 kg (246 lb) 01/07/2025 4:58 PM EDT Height 182.9 cm (6') 01/07/2025 4:58 PM EDT Body Mass Index 33.36 01/07/2025 4:58 PM EDT Plan of Treatment Upcoming Encounters Date Type Department Care Team (Late st Contact Info) Description 08/04/2025 4:00 PM EST Office Visit [facility] [address] [place] [address] Angela Serna MD [address] [place] [address] 01/07/2026 4:40 PM EDT Office Visit [facility] [address] [place] [address] Jonna Boone, STONECUTTER HAND [address] [place] [address] Health Maintenance Due Date Last Done Comments CT Colonography 1971 Colonoscopy 1971 FIT 1971 FOBT 1971 Sigmoidoscopy 1971 Colorectal Cancer Screening 01/31/2025 FIT-DNA 01/31/2025 01/31/2022, 01/31/2022 Influenza Vaccine (Season Ended) 2025 Procedures Procedure Name Priority Date/Time Associated Diagnosis Comments CRYOTHERAPY SKIN LESION Routine 01/27/2025 4:02 PM EDT Actinic keratosis LAB COLOGUARD COLON CANCER SCREEN Routine 01/31/2022 from Last 3 Months or Most Recently Relevant to Health Maintenance Results * Cryotherapy, skin lesion (01/27/2025 4:02 PM EDT) Result [facility] Angela Serna MD DERM PROCEDURE ORDERABLES Fin al Result * Cologuard?? colon cancer screening (01/31/2022) COLOGUARD RESULT REPORTABLE Negative Negative [facility] Comment: NEGATIVE TEST RESULT. A negative Cologuard result indicates a low likelihood that a colorectal cancer (CRC) or advanced adenoma (adenomatous polyps with more advanced pre-malignant features) is present. The chance that a person with a negative Cologuard test has a colorectal cancer is less than 1 in 1500 (negative predictive value >99.9%) or has an advanced adenoma is less than 5.3% (negative predictive value 94.7%). These data are based on a prospective cross-sectional study of 10,000 individuals at average risk for colorectal cancer who were screened with both Cologuard and colonoscopy. (Dash Méndez, N Engl J Med 2014;370(14):4599-3599) The normal value (reference range) for this assay is negative. COLOGUARD RE-SCREENING RECOMMENDATION: Periodic colorectal cancer screening is an important part of preventive healthcare for asymptomatic individuals at average risk for colorectal cancer. Following a negative Cologuard result, the [place] Cancer Society and U.S. Multi-Society Task Force screening guidelines recommend a Cologuard re-screening interval of 3 years. References: [place] Cancer Society Guideline for Colorectal Cancer Screening: https://www.cancer.org/cancer/kibat-ovlxkv-wwifsw/vjmqusqej-yywznyect-erghsjo/ac s-rec ommendations.html.; Boyd DK, Arsh CR, Constantine AndujarK, Colorectal Cancer Screening: Recommendations for Physicians and Patients from the U.S. Multi-Society Task Force on Colorectal Cancer Screening , Am J Gastroenterology 2017; 112:9266-5328. TEST DESCRIPTION: Composite algorithmic analysis of stool DNA-biomarkers with hemoglobin immunoassay. Quantitative values of individual biomarkers are not reportable and are not associated with individual biomarker result reference ranges. Cologuard is intended for colorectal cancer screening of adults of either sex, 45 years or older, who are at average-risk for colorectal cancer (CRC). Cologuard has been approved for use by the U.S. FDA. The performance of Cologuard was established in a cross sectional study of average-risk adults aged 50-84. Cologuard performance in patients ages 45 to 49 years was estimated by sub-group analysis of near-age groups. Colonoscopies performed for a positive result may find as the most clinically significant lesion: colorectal cancer [4.0%], advanced adenoma (including sessile serrated polyps greater than or equal to 1cm diameter) [20%] or non- advanced adenoma [31%]; or no colorectal neoplasia [45%]. These estimates are derived from a prospective cross-sectional screening study of 10,000 individuals at average risk for colorectal cancer who were screened with both Cologuard and colonoscopy. (Dash Méndez, N Engl J Med 2014;370(14):7552-6945.) Cologuard may produce a false negative or false positive result (no colorectal cancer or precancerous polyp present at colonoscopy follow up). A negative Cologuard test result does not guarantee the absence of CRC or advanced adenoma (pre-cancer). The current Cologuard screening interval is every 3 years. ([place] Cancer Society and U.S. Multi-Society Task Force). Cologuard performance data in a 10,000 patient pivotal study using colonoscopy as the reference method can be accessed at the following location: www.[employer]/results. Additional description of the Cologuard test process, warnings and precautions can be found at www.cologuard.com. 01/31/2022 us Korin Ribeiro STONECUTTER HAND LAB MOLECULAR DIAGNOSTICS OR DERABLES Final Result [facility] from Last 3 Months or Most Recently Relevant to Health Maintenance Insurance BS Care Teams Pinked Edge Sewing Machine Operator Relationship Specialty Start Date End Date Oscar Rodriguez MD [address] [place] [address] PCP - General Family Medicine 01/09/23 Jonna Boone NP [address] [place] [address] Nurse Practitioner Pulmonary Disease 06/29/23 Angela Serna MD [address] [place] [address] Referring Physician Dermatology 05/28/24 Matti Goff DO [address] [place] [address] Otolaryngology 05/28/24
--- OUTSIDE RECORDS SUMMARY | 2025-01-31 07:01 | XMS_ITS | Encounter Summary ---
Author Organization [facility] Address [address] [place] [address] Care Team Providers Care International Marketing Manager Name Role Phone Korin Ribeiro LAUNDRY OR DRY CLEANERS COUNTER CLERK Unavailable Oscar Rodriguez MD Primary Care Provider Theodora Gamble NP Unavailable Jonna Boone LAUNDRY OR DRY CLEANERS COUNTER CLERK Unavailable Jonna Boone LAUNDRY OR DRY CLEANERS COUNTER CLERK Unavailable Angela Serna MD Unavailable Matti Goff DO Unavailable [phone] Encounter Details Date Type Department Care Team (Late st Contact Info) Description 01/10/2024 Orders Only [facility] [address] [place] [address] Jonna Boone, LAUNDRY OR DRY CLEANERS COUNTER CLERK [address] [place] [address] Gastroesophageal reflux disease without esophagitis; Essential hypertension (CMS/HCC) ; Mixed hyperlipidemia (CMS/HCC) Social History Tobacco Use Types Packs/Day Years [...] How often do you attend chur or christian services? Patient declined 07/03/2023 Do you belong to any clubs o r organizations such as yazidism groups, unions, fraternal or athletic groups, or [...] care, and heating? Not very hard 07/03/2023 [facility] [place] of Occupat ional Health - Occupational Stress [...] Office Visit [facility] [address] [place] [address] Angela Serna MD [address] [place] [address] 01/07/2026 4:40 PM EDT Office Visit [facility] [address] [place] [address] Jonna Boone, LAUNDRY OR DRY CLEANERS COUNTER CLERK [address] [place] [address] documented as of this encounter Visit Diagnoses Diagnosis Gastroesophageal reflux disease without esophagitis Esophageal reflux Essential hypertension (CMS/HCC) Unspecified essential hypertension Mixed hyperlipidemia (CMS/HCC) Mixed hyperlipidemia documented in this encounter Care Teams International Marketing Manager Relationship Specialty Start Date End Date Korin Ribeiro NP [address] [place] [address] PCP - [employer] 12/02/21 Oscar Rodriguez MD [address] [place] [place] [address] PCP - General Family Medicine 01/09/23 Jonna Boone NP [address] [place] [place] [address] PCP - [employer] 03/03/24 Theodora Gamble NP [address] [place] [place] [address] Nurse Practitioner Family Medicine 06/29/23 01/01/25 Jonna Boone LAUNDRY OR DRY CLEANERS COUNTER CLERK [address] [place] [address] Nurse Practitioner Pulmonary Disease 06/29/23 Angela Serna MD [address] [place] [address] Referring Physician Dermatology 05/28/24 Matti Goff DO [address] [place] [address] Otolaryngology 05/28/24 documented as of this encounter
--- OUTSIDE RECORDS SUMMARY | 2025-01-31 07:01 | XMS_ITS | Encounter Summary ---
Author Organization [facility] Address [address] [place] [address] Care Team Providers Care Aircraft Detail Draftsperson Name Role Phone Oscar Rodriguez MD Primary Care Provider [phone] Source Comments In the event this information is protected by the Federal Confidentiality of Alcohol and Drug AbusePatient Records regulations: The Federal rules restrict any use of the information to criminally investigate or prosecute any alcohol or drug abuse patient.[facility] Encounter Details Date Type Department Care Team (Latest Contact Info) Description 10/12/2003 Prob Sum Review Provider, Ccbernabe Social History Tobacco Use Types Packs/Day Years Used Date Smoking Tobacco: Never Assessed Sex and Gender Information Value Date Recorded Sex Assigned at Not on file Legal Sex Male 10:01 AM EST Gender Identity Not on file Sexual Orientation Not on file documented as of this encounter Plan of Treatment Not on file documented as of this encounter Visit Diagnoses Not on filedocumented in this encounter Care Teams Aircraft Detail Draftsperson Relationship Specialty Start Date End Date Oscar Rodriguez MD [address] [place] [address] PCP - General 09/25/03 documented as of this encounter
--- OUTSIDE RECORDS SUMMARY | 2025-01-31 07:01 | XMS_ITS | Encounter Summary ---
Author Organization [facility] Address [address] [place] [address] Care Team Providers Care Brick Siding Applicator Name Role Phone Oscar Rodriguez MD Primary Care Provider [phone] Theodora Gamble NP Unavailable Jonna Boone MANAGER OF BUSINESS OPERATIONS Unavailable Jonna Boone MANAGER OF BUSINESS OPERATIONS Unavailable [phone] Angela Serna MD Unavailable [phone] Matti Goff Ravi DO Unavailable Encounter Details Date Type Department Care Team (Late st Contact Info) Description 11/06/2024 Abstract [facility] [address] [place] [address] Jonna Boone, MANAGER OF BUSINESS OPERATIONS [address] [place] [address] Social History Tobacco Use Types Packs/Day Years [...] How often do you attend chur or anabaptism services? Patient declined 07/03/2023 Do you belong to any clubs o r organizations such as mormon groups, unions, fraGrabhouse or athletic groups, or school groups? Patient [...] Date Recorded Patient Health Questionnaire-2 Score 0 07/09/2024 [facility] of Occupat ional Health - Occupational Stress [...] place to sleep or slept in a fdc (including now)? No 07/03/2023 Sex and Gender Information Value Date Recorded Sex Assigned at Not on file Legal Sex Male 6:37 PM EDT Gender Identity Male 06/05/2023 9:27 PM EDT Sexual Orientation Not on file documented as of this encounter Plan of Treatment Upcoming Encounters Date Type Department Care Team (Late st Contact Info) Description 08/04/2025 4:00 PM EST Office Visit [facility] [address] [place] [address] Angela Serna MD [address] [place] [address] 01/07/2026 4:40 PM EDT Office Visit [facility] [address] [place] [address] Jonna Boone, NANDO [address] [place] [address] documented as of this encounter Visit Diagnoses Not on filedocumented in this encounter Care Teams Brick Siding Applicator Relationship Specialty Start Date End Date Oscar Rodriguez MD [address] [place] [address] PCP - General Family Medicine 01/09/23 Jonna Boone MANAGER OF BUSINESS OPERATIONS [address] [place] [address] PCP - [place] [employer] 03/03/24 Theodora Gamble NP [address] [place] [id number] Nurse Practitioner Family Medicine 06/29/23 01/01/25 Jonna Boone NP [address] [place] [address] Nurse Practitioner Pulmonary Disease 06/29/23 Angela Serna MD [address] [place] [address] [place] [address] Referring Physician Dermatology 05/28/24 Matti Goff DO [address] [place] [address] Otolaryngology 05/28/24 documented as of this encounter
--- OUTSIDE RECORDS SUMMARY | 2025-01-31 07:01 | XMS_ITS | CCD ---
Author Organization [facility] Care Team Providers Care Imagery Intelligence Name Role Phone LUZ MARIE Admitting Unavailable LUZ MARIE Attending Unavailable RODRIGUEZ, DR CHAPPELL Primary Care Unavailable LUZ MARIE Consulting Unavailable RODRIGUEZ, DR CHAPPELL Admitting Unavailable RODRIGUEZ, DR CHAPPELL Attending Unavailable RODRIGUEZ, DR CHAPPELL Primary Care Unavailable RODRIGUEZ, DR CHAPPELL Consulting Unavailable Murcek DO Matti Attending Provider [phone] MD Ta Rodriguez Primary Care Provider Ta Rodriguez Primary Care Unavailable Matti Goff Attending Unavailable Murcek, Matti Admitting Unavailable MurcekMatti Attending Unavailable Murcek, Matti Admitting Unavailable RodriguezTa Primary Care Unavailable Ta Rodriguez MD Primary Care Provider Tye MOTOR TEACHER, Theodora Unavailable Mely MOTOR TEACHER, Edwin R Unavailable Mely MOTOR TEACHER, Edwin R Unavailable Kareem ECHEVARRIA, Angela Hartman Unavailable Matti Goff DO Unavailable EDWIN BOONE Attending Unavailable PETITTANGELA Mathis Attending Unavailable PETITTANGELA Mathis Attending Unavailable MURCEKMATTI Attending Unavailable PETITTANGELA Mathis Referring Unavailable MURCEKMATTI W Attending Unavailable MURCEKMATTI W Referring Unavailable MURCEKMATTI W Attending Unavailable MURCEKMATTI W Attending Unavailable PETITTI ANGELA A Referring Unavailable EDWIN BOONE Attending Unavailable PETITTANGELA Mathis Attending Unavailable Medications Current Medications Medication Drug Class(es) Dates Sig (Normalized) Sig (Original) amoxicillin 875 mg / clavulanate 125 mg oral tablet (2 sources) Penicillin-class Antibacterial Start: 5 take 1 tablet by mouth twice daily Amoxicillin-Pot Clavulanate 875-125 mg tablet Active 1 TAB PO Twice daily 22 06September 10, 2024 12:00am atorvastatin 20 mg oral tablet (20 sources) HMG-CoA Reductase Inhibitor Start: 4 End: 6 take 1 tablet by mouth once daily atorvastatin (Lipitor) 20 MG tablet Indications: Mixed hyperlipidemia (CMS/HCC) Take 1 tablet (20 mg) by mouth 1 (one) time each day at the same time 90 tablet 3 01/07/2025 01/02/2026 Active hydroCHLOROthiazide 25 mg / lisinopril 20 mg oral tablet (20 sources) Thiazide Diuretic, Angiotensin Converting Enzyme Inhibitor Start: 4 End: 6 take 1 tablet by mouth once daily lisinopril-hydroCH LOROthiazide 20-25 MG tablet Indications: Essential hypertension (CMS/HCC) Take 1 tablet by mouth 1 (one) time each day at the same time 90 tablet 3 01/07/2025 01/02/2026 Active Lactobacillus Combination No.4 (Probiotic) 3 billion cell capsule (4 sources) Start: 4 take 3 capsules by mouth once daily Lactobacillus Combination No.4 (Probiotic) 3 billion cell capsule Active 3000 MMU CELLS PO Daily April 06, 2024 11:00pm administer with a meal Start: 04-07-2024 take 3 capsules by m outh once daily Lactobacillus Combination No.4 (Probiotic) 3 billion cell capsule Active 3000 MMU CELLS PO Daily April 07, 2024 12:00am administer with a meal Multiple Vitamin (multivitamin) capsule (9 sources) take 1 capsule by mouth once daily Multiple Vitamin (multivitamin) capsule Take 1 capsule by mouth Daily Active Multivitamin (Daily Multi-Vitamin) tablet (4 sources) Start: 04-07-2024 take 1 tablet by mouth once daily in the morning Multivitamin (Daily Multi-Vitamin) tablet Active 1 TAB PO Every morning April 06, 2024 11:00pm Start: 04-07-2024 take 1 tablet by jaylen th once daily in the morning Multivitamin (Daily Multi-Vitamin) tablet Active 1 TAB PO Every morning April 07, 2024 12:00am [place] 5-Axu-Eyi-Fish Oil (Fish Oil) 1,000 mg (120 mg-180 mg) capsule (4 sources) Start: 04-07-2024 take 1 capsule by mouth once daily [place] 7-Ouh-Qeg-Fish Oil (Fish Oil) 1,000 mg (120 mg-180 mg) capsule Active 1 CAP PO Daily April 06, 2024 11:00pm Start: 04-07-2024 take 1 capsule by mo [facility] once daily [place] 0-Pwb-Wan-Fish Oil (Fish Oil) 1,000 mg (120 mg-180 mg) capsule Active 1 CAP PO Daily April 07, 2024 12:00am omeprazole 20 mg delayed release oral capsule (20 sources) Proton Pump Inhibitor Start: 01-10-2024 End: 01-02-2026 take 1 capsule by mouth once daily omeprazole (PriLOSEC) [address] capsule Indications: Gastroesophageal reflux disease without esophagitis Take 1 capsule (20 mg) by mouth 1 (one) time each day at the same time 90 capsule 3 01/07/2025 01/02/2026 Active Completed/Discontinued Medications Medication Drug Class(es) Dates Sig (Normalized) Sig (Original) cephalexin 500 mg oral capsule (7 sources) Cephalosporin Antibacterial Start: 04-21-2024 End: 07-09-2024 take 1 capsule by mouth at bedtime cephalexin (Keflex) 500 MG capsule TAKE 1 CAPSULE (500 MG) BY MOUTH IN THE MORNING AND BEFORE BEDTIME FOR 10 DAYS 04/21/2024 07/09/2024 Discontinued (Therapy completed) fluorouracil 50 mg/ml topical cream (4 sources) Nucleoside Metabolic Inhibitor Start: 07-29-2024 End: 01-07-2025 fluorouracil (Efudex) 5 % cream Indications: Actinic keratosis Apply to directed areas on the scalp twice a day x 14 days. Dispense 30 day supply but only use for 14 days. 40 g 07/29/2024 01/07/2025 Discontinued (Therapy completed) saccharomyces boulardii 250 mg oral capsule (6 sources) End: 01-07-2025 take 1 capsule by mouth in the morning saccharomyces boulardii (Florastor) 250 MG capsule Take 250 mg by mouth in the morning and 250 mg before bedtime. 01/07/2025 Discontinued (Therapy completed) Problems Problem Classification Problem Date Documented Date Episodic/Chronic Disorders of lipid metabolism (20 sources) Mixed hyperlipidemia; Translations: [Mixed hyperlipidemia] Onset: 07-01-2022 Chronic Esophageal disorders (4 sources) Gastroesophageal reflux disease without esophagitis; Translations: [Gastro-esophageal reflux disease without esophagitis] 07-09-2024 Chronic Essential hypertension (20 sources) Essential (primary) hypertension; Translations: [Essential hypertension] Onset: 07-05-2022 07-09-2024 Chronic Neoplasms of unspecified nature or uncertain behavior (2 sources) Neoplastic disease; Translations: [Neoplasm of unspecified behavior of bone, soft tissue, and skin] 07-29-2024 Episodic Nutritional deficiencies (15 sources) Vitamin D deficiency; Translations: [Vitamin D deficiency, unspecified] Onset: 06-13-2023 06-13-2023 Chronic Other and unspecified benign neoplasm (2 sources) Skin lesion; Translations: [Hemangioma of skin and subcutaneous tissue] 07-29-2024 Episodic Other circulatory disease (2 sources) Spider nevus; Translations: [Nevus, non-neoplastic] 01-27-2025 Episodic Other ear and sense organ disorders (1 source) Impacted cerumen; Translations: [Impacted cerumen, left ear] 09-14-2024 Episodic Other ear and sense organ disorders (1 source) Impacted cerumen, left ear; Translations: [Impacted cerumen] 09-14-2024 Episodic Other non-epithelial cancer of skin (13 sources) Squamous cell carcinoma of skin of other parts of face; Translations: [Malignant neoplasm of skin of cheek, external ] Onset: 04-21-2024 04-28-2024 Episodic Other screening for suspected conditions (not mental disorders or infectious disease) (8 sources) Patient encounter status; Translations: [Encounter for screening for nutritional disorder] 07-09-2024 Episodic Other skin disorders (4 sources) Actinic keratosis; Translations: [Actinic keratosis] 07-29-2024 Episodic Other skin disorders (4 sources) Lentiginosis; Translations: [Other melanin hyperpigmentation] 07-29-2024 Episodic Otitis media and related conditions (5 sources) Acute left otitis media; Translations: [Otitis media, unspecified, left ear] 09-10-2024 Episodic Spondylosis; intervertebral disc disorders; other back problems (4 sources) Sciatica; Translations: [Sciatica, left side] 07-09-2024 Episodic Results Test Name Value Interpretation Reference Range Facility No Panel Informationon 01-27 [facility] No Panel Informationon 07-29 Type of biopsy: tangential Informed consent: discussed and consent obtained Informed consent comment: The risks and benefits of the biopsy were discussed. Risks include but are not limited to bleeding, infection, scarring, pain, and nerve damage. An opportunity to ask questions prior to the procedure was permitted and all questions were answered. Patient was prepped and draped in usual sterile fashion: area cleansed with alcohol. Anesthesia: the lesion was anesthetized in a standard fashion Anesthetic: 1% lidocaine w/ epinephrine 1-100,000 buffered w/ 8.4% NaHCO3 Instrument used: DermaBlade Hemostasis achieved with: electrodesiccation Outcome: patient tolerated procedure well Outcome comment: The specimen was placed in a prelabeled formalin container to be sent for pathology Post-procedure details: sterile dressing applied and wound care instructions given Post-procedure details comment: Emphasized need to contact clinic for any signs of infection, uncontrollable bleeding, or complications. Dressing type: bandage Additional details: Photo taken yes Amount of lidocaine used: 0.5 cc [facility] [place] 04-21-2024 L Specimen: [id number] Received: 04/21/24 Status: MIKAL Rae Num: [id number] Spec Type: Surgical Subm Dr: Matti Goff DO Tissues: A Skin-Other than Cyst, tag, debridement or plastic repair (LEFT CHEEK) B Skin-Other than Cyst, tag, debridement or plastic repair (LEFT POSTERIOR ANTIONE Procedures: HE/10, Gross/Micro L4/2 Age/ Patient Sex Location Account Attending Physician Fredo Luke 53/M [place] [id number] Matti Goff DO SPEC NUM: [id number] RECD: 04/21/24 STATUS: MIKAL RAE NUM: [id number] OSCAR: 04/21/[address]: Matti Goff DO ENTERED: 04/21/[address] [facility] [address]: SPEC TYPE: Surgical DEPT: S ENTERED BY: [id number] RECV BY: [id number] ORDERED: HE/10, Gross/Micro L4/2 ORDERED: HE/10, Gross/Micro L4/2 Pathological Diagnosis A, skin, left cheek, excision: -Moderate postbiopsy cicatrix and chronic inflammation in the middle portion of the specimen without residual malignancy B, skin, left posterior neck, excision: -Patchy moderate post biopsy scar with patchy residual or recurrent basal cell carcinoma of the mixed superficial (extensive) and rare small nodular types -All margins are negative for malignancy -Incidental moderate background solar elastosis, and occasional small foci of senile lentigos and mild actinic keratosis are also noticed Clinical Information Skin cancer Gross Description Part a was received in formalin with the patient's name and squamous cell carcinoma left cheek is a rectangular jonas-pink excision of skin, measuring 1.4 cm from superior to inferior, 1.2 cm from anterior to posterior and excised to a depth of 0.5 cm. The specimen is oriented with 2 black sutures designated as short anterior, and long posterior, per -------- Specimen: [id number] Received: 04/21/24 Status: MIKAL Rae Num: [id number] Spec Type: Surgical Subm Dr: Matti Goff DO Tissues: A Skin-Other than Cyst, tag, debridement or plastic repair (LEFT CHEEK) B Skin-Other than Cyst, tag, debridement or plastic repair (LEFT POSTERIOR ANTIONE Procedures: Kwan Campa/Micro L4/2 -------- Patient: Fredo Luke [id number] (Continued) -------- Specimen: [id number] Received: 04/21/24 (Continued) Gross Description (Continued) Signed (signature on file) Victoriano Telles MD 04/24/24 1319 -------- Specimen: [id number] Received: 04/21/24 Status: MIKAL Butch Num: [id number] Spec Type: Surgical Subm Dr: Matti Goff DO Tissues: A Skin-Other than Cyst, tag, debridement or plastic repair (LEFT CHEEK) B Skin-Other than Cyst, tag, debridement or plastic repair (LEFT POSTERIOR ANTIONE Procedures: Kwan/Yong L4/2 -------- Patient: Fredo Luke [id number] (Continued) -------- Specimen: [id number] Received: 04/21/24 (Continued) Gross Description (Continued) requisition. The specimen is inked superior blue, inferior green, anterior yellow, posterior red, and the deep is inked black. The skin surface has a centrally located lesion measuring 0.7 x 0.3 cm. The lesion measures 0.4 cm to the superior margin 0.5 cm to the posterior margin, 0.5 cm to the inferior margin, 0.4 cm to the anterior margin, and 0.5 cm to the deep margin. The specimen is serially sectioned from the superior to the inferior into 5 sections. The specimen is sequentially and entirely submitted from the superior to the inferior in cassettes A1-A3. Cassette A1 Superior margin perpendicularly sectioned Cassette A2 mid sections with lesion Cassette A3 inferior margin perpendicularly sectioned Part B was received in formalin with the patient's name and left posterior neck is a oriented jonas ellipse of skin measuring 4.7 x 2.0 and excised to a depth of 0.5 cm. The specimen is oriented with 2 black sutures designated as long superior and short superior per requisition. The specimen is inked superior blue, inferior green, anterior yellow, posterior red, and the deep is inked black. The skin surface is jonas and roughened, with a centrally located hypopigmented, variegated, nodular area measuring 2.5 x 2.0 cm. The nodules range in size from 0.1 to 0.2 cm in greatest dimension The nodules are abutting the superior-posterior aspect. The specimen is serially sectioned from the superior to the inferior into 15 sections / slices. The specimen is sequentially and entirely submitted from the superior to the inferior in casset (more content not included)... Normal [facility] Basic Metabolic Panelon GFR/1.73 sq M.predicted MDRD (S/P/Bld) [Vol rate/Area] mL/min/{1.73_m2} Normal [facility] Comment on above: Performed By: #### B MP #### [address] Calcium [Mass/volume] in Ser um or PlasmaOrdered By: Matti Goff on 04-07-2024 Calcium [Mass/Vol] 9.4 mg/dL Normal 8.6-10.3 [facility] Comment on above: Result Comment: PERF ORMED BY: [place] [address] PATHOLOGIST POLE PEELER EVELYN DHALIWAL M.D. Performed By: #### B MP #### [address] Carbon dioxide, total [Moles /volume] in Serum or PlasmaOrdered By: Matti Goff on 04-07-2024 CO2 [Moles/Vol] 31.8 mmol/L High 21.0-31.0 [facility] Comment on above: Performed By: #### B MP #### [address] Chloride [Moles/volume] in S chandler or PlasmaOrdered By: Matti Goff on 04-07-2024 Chloride [Moles/Vol] 100 mmol/L Normal 98-107 [facility] Comment on above: Performed By: #### B MP #### [address] Creatinine [Mass/volume] in Serum or PlasmaOrdered By: Matti Goff on 04-07-2024 Creatinine [Mass/Vol] 0.79 mg/dL Normal 0.70-1.30 [facility] Comment on above: Performed By: #### B MP #### [place] [address] [place] ECG 12 lead ECGon 04-07-2024 ECG 12 lead ECG [facility] [place] [address] [place] [address] Electrocardiograph Report Signed Patient: Fredo Luke MR#: [id number] : 1970 Acct:[id number] Age/Sex: 53 / M ADM Date: 04/07/24 Loc: PS Room: Type: [facility] Attending Dr: Matti Goff DO Ordering Provider: [...] MUS Signed By Erica Bella DO 1911 Normal [facility] Glucose [Mass/volume] in Ser um or PlasmaOrdered By: Matti Goff on 04-07-2024 Glucose [Mass/Vol] 105 mg/dL High 70-100 [facility] Comment on above: ADA recommended refe rence rangeRandom Glucose Reference Range is dependent on time and content of last meal. Glucose of more than 200 mg/dL in a nonstressed, ambulatory subject supports the diagnosis of Diabetes Mellitus. Result Comment: [place] om Glucose Reference Range is dependent on time and content of last meal. Glucose of more than 200 mg/dL in a nonstressed, ambulatory subject supports the diagnosis of Diabetes Mellitus. ADA recommended reference range Performed By: #### B MP #### [facility] [address] No Panel InformationOrdered By: Matti Goff on 04-07-2024 Estimated GFR (CKD-EPI) > 60.0 mL/Min [facility] Creatinine Clearance (Chem N/A [facility] Potassium [Moles/volume] in Serum or PlasmaOrdered By: Matti Goff on 04-07-2024 Potassium [Moles/Vol] 4.1 mmol/L Normal 3.5-5.1 [facility] Comment on above: Performed By: #### B MP #### [facility] [address] Serum or plasma anion gap de terminationOrdered By: Matti Goff on 04-07-2024 Anion gap [Moles/Vol] 10.3 mmol/L Normal 6.0-15.0 [facility] Comment on above: Performed By: #### B MP #### [facility] [address] Sodium [Moles/volume] in Ser um or PlasmaOrdered By: Matti Goff on 04-07-2024 Sodium [Moles/Vol] 138 mmol/L Normal 136-145 [facility] Comment on above: Performed By: #### B MP #### [facility] [address] Urea nitrogen [Mass/volume] in Serum or PlasmaOrdered By: Matti Goff on 04-07-2024 Urea nitrogen [Mass/Vol] 22 mg/dL Normal 7-25 [facility] Comment on above: Performed By: #### B MP #### [facility] [address] CBC AUTO DIFFon 09-16-2022 BASO # 0.0 103/ul Normal 0.0-0.1 [facility] Comment on above: Performed By: #### C BC #### [facility] [address] [place] [address] Dr. Ramsey Telles Basophils/100 WBC (Bld) 0.2 % Normal 0.2-2.0 [facility] Comment on above: Performed By: #### C BC #### [facility] [address] [place] [address] Dr. Ramsey Telles EO # 0.1 103/ul Normal 0.0-0.7 [facility] Comment on above: Performed By: #### C BC #### [facility] [address] [place] [address] Dr. Ramsey Telles Eosinophils/100 WBC (Bld) 1.3 % Normal 0.9-7.0 [facility] Comment on above: Performed By: #### C BC #### [facility] [address] [place] [address] Dr. Ramsey Telles Erythrocyte distribution width (RBC) [Ratio] 12.8 % Normal 11.0-15.0 [facility] Comment on above: Performed By: #### C BC #### [facility] [address] [place] [address] Dr. Ramsey Telles Hematocrit (Bld) [Volume fraction] 41.9 % Critically low 42.0-54.0 [facility] Comment on above: Performed By: #### C BC #### [facility] [address] [place] [address] Dr. Ramsey Telles Hemoglobin (Bld) [Mass/Vol] 14.1 g/dL Normal 14.0-18.0 [facility] Comment on above: Performed By: #### C BC #### [facility] [address] [place] [address] Dr. Ramsey Telles IG # 0.01 10e3/ul Normal 0.00-0.03 [facility] Comment on above: Performed By: #### C BC #### [facility] [address] [place] [address] Dr. Ramsey Telles IG % 0.2 % Normal 0.0-0.5 [facility] Comment on above: Performed By: #### C BC #### [facility] [address] [place] [address] Dr. Ramsey Telles LYMPH # 1.9 103/ul Normal 1.2-3.8 [facility] Comment on above: Performed By: #### C BC #### [facility] [address] [place] [address] Dr. Ramsey Telles Lymphocytes/100 WBC (Bld) 40.3 % Normal 20.5-60.0 [facility] Comment on above: Performed By: #### C BC #### [facility] [address] [place] [address] Dr. Ramsey Telles MANUAL DIFF REQ NO Normal [facility] Comment on above: Performed By: #### C BC #### [facility] [address] [place] [address] Dr. Ramsey Telles MCH (RBC) [Entitic mass] 30.2 pg Normal 25.9-34.0 [facility] Comment on above: Performed By: #### C BC #### [facility] [address] [place] [address] Dr. Ramsey Telles MCHC (RBC) [Mass/Vol] 33.7 g/dL Normal 29.9-35.2 [facility] Comment on above: Performed By: #### C BC #### [facility] [address] [place] [address] Dr. Ramsey Telles MCV (RBC) [Entitic vol] 89.7 fL Normal 80.0-94.0 [facility] Comment on above: Performed By: #### C BC #### [facility] [address] [place] [address] Dr. Ramsey Telles MONO # 0.5 103/ul Normal 0.3-0.8 [facility] Comment on above: Performed By: #### C BC #### [facility] [address] [place] [address] Dr. Ramsey Telles Monocytes/100 WBC (Bld) 11.3 % Normal 1.7-12.0 [facility] Comment on above: Performed By: #### C BC #### [facility] [address] [place] [address] Dr. Ramsey Telles NEUT # 2.2 103/ul Normal 1.4-6.5 [facility] Comment on above: Performed By: #### C BC #### [facility] [address] [place] [address] Dr. Ramsey Telles Neutrophils/100 WBC (Bld) 46.7 % Normal 43.0-75.0 [facility] Comment on above: Performed By: #### C BC #### [facility] [address] [place] [address] Dr. Ramsey Telles Platelet mean volume (Bld) [Entitic vol] 10.8 fL Normal 9.5-13.5 [facility] Comment on above: Performed By: #### C BC #### [facility] [address] [place] [address] Dr. Ramsey Telles PLT 182 103/ul Normal 150-450 [facility] Comment on above: Performed By: #### C BC #### [facility] [address] [place] [address] Dr. Ramsey Telles RBC 4.67 106/ul Critically low 4.70-6.10 [facility] Comment on above: Performed By: #### C BC #### [facility] [address] [place] [address] Dr. Ramsey Telles WBC 4.6 103/ul Normal 4.0-11.0 [facility] Comment on above: Performed By: #### C BC #### [facility] [address] [place] [address] Dr. Ramsey Telles FERRITINon 09-16-2022 Ferritin [Mass/Vol] 323.0 ng/mL Normal 26.0-388.0 [facility] Comment on above: Performed By: #### F ETIBC, B12FOL, FERR #### [facility] [address] [place] [address] Dr. Ramsey Telles IRON AND TIBCon 09-16-2022 % SATURATION 30.0 % Normal [facility] Comment on above: Performed By: #### F ETIBC, B12FOL, FERR #### [facility] [address] [place] [address] Dr. Ramsey Telles Iron [Mass/Vol] 91.0 ug/dL Normal 65.0-175.0 [facility] Comment on above: Performed By: #### F ETIBC, B12FOL, FERR #### [facility] [address] [place] [address] Dr. Ramsey Telles TIBC DIRECT 303.0 ug/dL Normal 250.0-450.0 [facility] Comment on above: Performed By: #### F ETIBC, B12FOL, FERR #### [facility] [address] [place] [address] Dr. Ramsey Telles VIT B12 AND FOLATEon 023 Cobalamin (Vitamin B12) [Mass/Vol] 735.0 pg/mL Normal 193.0-986.0 [facility] Comment on above: Performed By: #### F ETIBC, B12FOL, FERR #### [facility] [address] [place] [address] Dr. Ramsey Telles FOLATE 16.70 ng/mL Normal 8.60-58.90 [facility] Comment on above: Performed By: #### F ETIBC, B12FOL, FERR #### [facility] [address] [place] [address] Dr. Ramsey Telles CBC AUTO DIFFon 07-01-2022 BASO # 0.0 103/ul Normal 0.0-0.1 [facility] Comment on above: Performed By: #### C BC #### [facility] [address] [place] [address] Dr. Ramsey Telles Basophils/100 WBC (Bld) 0.3 % Normal 0.2-2.0 [facility] Comment on above: Performed By: #### C BC #### [facility] [address] [place] [address] Dr. Ramsey Telles EO # 0.1 103/ul Normal 0.0-0.7 [facility] Comment on above: Performed By: #### C BC #### [facility] [address] [place] [place] [address] Dr. Ramsey Telles Eosinophils/100 WBC (Bld) 1.3 % Normal 0.9-7.0 [facility] Comment on above: Performed By: #### C BC #### [facility] [address] [place] [address] Dr. Ramsey Telles Erythrocyte distribution width (RBC) [Ratio] 13.2 % Normal 11.0-15.0 [facility] Comment on above: Performed By: #### C BC #### [facility] [address] [place] [address] Dr. Ramsey Telles Hematocrit (Bld) [Volume fraction] 39.7 % Critically low 42.0-54.0 [facility] Comment on above: Performed By: #### C BC #### [facility] [address] [place] [address] Dr. Ramsey Telles Hemoglobin (Bld) [Mass/Vol] 13.5 g/dL Critically low 14.0-18.0 [facility] Comment on above: Performed By: #### C BC #### [facility] [address] [place] [address] Dr. Ramsey Telles IG # 0.01 10e3/ul Normal 0.00-0.03 [facility] Comment on above: Performed By: #### C BC #### [facility] [address] [place] [address] Dr. Ramsey Telles IG % 0.3 % Normal 0.0-0.5 [facility] Comment on above: Performed By: #### C BC #### [facility] [address] [place] [address] Dr. Ramsey Telles LYMPH # 1.7 103/ul Normal 1.2-3.8 [facility] Comment on above: Performed By: #### C BC #### [facility] [address] [place] [address] Dr. Ramsey Telles Lymphocytes/100 WBC (Bld) 44.1 % Normal 20.5-60.0 [facility] Comment on above: Performed By: #### C BC #### [facility] [address] [place] [address] Dr. Ramsey Telles MANUAL DIFF REQ NO Normal [facility] Comment on above: Performed By: #### C BC #### [facility] [address] [place] [address] Dr. Ramsey Telles MCH (RBC) [Entitic mass] 31.3 pg Normal 25.9-34.0 [facility] Comment on above: Performed By: #### C BC #### [facility] [address] [place] [address] Dr. Ramsey Telles MCHC (RBC) [Mass/Vol] 34.0 g/dL Normal 29.9-35.2 [facility] Comment on above: Performed By: #### C BC #### [facility] [address] [place] [address] Dr. Ramsey Telles MCV (RBC) [Entitic vol] 92.1 fL Normal 80.0-94.0 [facility] Comment on above: Performed By: #### C BC #### [facility] [address] [place] [address] Dr. Ramsey Telles MONO # 0.4 103/ul Normal 0.3-0.8 [facility] Comment on above: Performed By: #### C BC #### [facility] [address] [place] [address] Dr. Ramsey Telles Monocytes/100 WBC (Bld) 10.7 % Normal 1.7-12.0 [facility] Comment on above: Performed By: #### C BC #### [facility] [address] [place] [address] Dr. Ramsey Telles NEUT # 1.7 103/ul Normal 1.4-6.5 [facility] Comment on above: Performed By: #### C BC #### [facility] [address] [place] [address] Dr. Ramsey Telles Neutrophils/100 WBC (Bld) 43.3 % Normal 43.0-75.0 [facility] Comment on above: Performed By: #### C BC #### [facility] [address] [place] [address] Dr. Ramsey Telles Platelet mean volume (Bld) [Entitic vol] 11.0 fL Normal 9.5-13.5 [facility] Comment on above: Performed By: #### C BC #### [facility] [address] [place] [address] Dr. Ramsey Telles PLT 171 103/ul Normal 150-450 [facility] Comment on above: Performed By: #### C BC #### [facility] [address] [place] [address] Dr. Ramsey Telles RBC 4.31 106/ul Critically low 4.70-6.[address] [facility] Comment on above: Performed By: #### C BC #### [facility] [address] [place] [address] Dr. Ramsey Telles WBC 3.8 103/ul Critically low 4.0-11.0 [facility] Comment on above: Performed By: #### C BC #### [facility] [address] [place] [address] Dr. Ramsey Telles FREE T4on 07-01-2022 Free T4 [Mass/Vol] 0.94 ng/dL Normal 0.76-1.46 [facility] Comment on above: Performed By: #### F T4, VITAD #### [facility] [address] [address] [address] Ramsey Telles LIPID PROFILEon 07-01-2022 CHOL-HDL RATIO NORM SEE BELOW Normal [facility] Comment on above: Result Comment: 3.3 - 4.4 LOW RISK 4.4 - 7.1 AVERAGE RISK 7.1 - 11.0 MODERATE RISK >11.0 HIGH RISK Performed By: #### L IPID, CMP, TSH #### [facility] [address] [address] [address] Ramsey Telles Cholesterol [Mass/Vol] 171 mg/dL Normal <=200 [facility] Comment on above: Performed By: #### L IPID, CMP, TSH #### [facility] [address] [address] [address] Ramsey Telles Cholesterol in HDL [Mass/Vol] 50 mg/dL Normal 40-60 [facility] Comment on above: Performed By: #### L IPID, CMP, TSH #### [facility] [address] [address] [address] Ramsey Telles Cholesterol in LDL [Mass/Vol] 108.4 mg/dL Normal [facility] Comment on above: Performed By: #### L IPID, CMP, TSH #### [facility] [address] [address] [address] Ramsey Telles Cholesterol.total/Crys sterol in HDL [Mass ratio] 3.4 {ratio} Normal [facility] Comment on above: Performed By: #### L IPID, CMP, TSH #### [facility] [address] [address] [address] Ramsey Telles HDL NORMAL > or = 60 mg/dl - LO W CARDIOVASCULAR RISK <40 mg/dl - HIGH CARDIOVASCULAR RISK Normal [facility] Comment on above: Performed By: #### L IPID, CMP, TSH #### [facility] [address] [address] [address] Ramsey Telles LDL CALC NORMAL SEE BELOW Normal [facility] Comment on above: Result Comment: <100 mg/dl OPTIMAL 100 - 129 mg/dl NEAR OR ABOVE OPTIMAL 130 - 159 mg/dl BORDERLINE HIGH 160 - 189 mg/dl HIGH >190 mg/dl VERY HIGH Performed By: #### L IPID, CMP, TSH #### [facility] [address] [address] [address] Ramsey Telles Triglyceride [Mass/Vol] 63 mg/dL Normal <=150 [facility] Comment on above: Performed By: #### L IPID, CMP, TSH #### [facility] [address] [address] [address] Ramsey Telles VLDL CALC 12.6 mg/dL Normal [facility] Comment on above: Performed By: #### L IPID, CMP, TSH #### [facility] [address] [address] [address] Ramsey Telles PROF 14(COMP METB)on 022 Albumin [Mass/Vol] 3.6 g/dL Normal 3.4-5.0 [facility] Comment on above: Performed By: #### L IPID, CMP, TSH #### [facility] [address] [address] [address] Ramsey Telles Albumin/Globulin [Mass ratio] 1.1 {ratio} Normal [facility] Comment on above: Performed By: #### L IPID, CMP, TSH #### [facility] [address] [address] [address] Ramsey Telles ALP [Catalytic activity/Vol] 45 U/L Critically low 46-116 [facility] Comment on above: Performed By: #### L IPID, CMP, TSH #### [facility] [address] [address] [address] Ramsey Telles ALT [Catalytic activity/Vol] 59 U/L Normal 16-63 [facility] Comment on above: Performed By: #### L IPID, CMP, TSH #### [facility] [address] [address] [address] Ramsey Telles Anion gap [Moles/Vol] 7.7 mmol/L Normal [facility] Comment on above: Performed By: #### L IPID, CMP, TSH #### [facility] [address] [place] [address] Dr. Ramsey Telles AST [Catalytic activity/Vol] 35 U/L Normal 15-37 [facility] Comment on above: Performed By: #### L IPID, CMP, TSH #### [facility] [address] [place] [address] Dr. Ramsey Telles Bilirubin [Mass/Vol] 0.4 mg/dL Normal 0.2-1.0 [facility] Comment on above: Performed By: #### L IPID, CMP, TSH #### [facility] [address] [place] [address] Dr. Ramsey Telles Calcium [Mass/Vol] 8.7 mg/dL Normal 8.5-10.1 [facility] Comment on above: Performed By: #### L IPID, CMP, TSH #### [facility] [address] [place] [address] Dr. Ramsey Telles Chloride [Moles/Vol] 106 mmol/L Normal 98-107 [facility] Comment on above: Performed By: #### L IPID, CMP, TSH #### [facility] [address] [place] [address] Dr. Ramsey Telles CO2 [Moles/Vol] 32.3 mmol/L Critically high 21.0-32.0 [facility] Comment on above: Performed By: #### L IPID, CMP, TSH #### [facility] [address] [place] [address] Dr. Ramsey Telles Creatinine [Mass/Vol] 0.81 mg/dL Normal 0.70-1.30 [facility] Comment on above: Performed By: #### L IPID, CMP, TSH #### [facility] [address] [place] [address] Dr. Ramsey Telles EGFR-AF CUBAN >60 Normal >=60 [facility] Comment on above: Performed By: #### L IPID, CMP, TSH #### [facility] [address] [place] [address] Dr. Ramsey Telles EGFR-NON AF CUBAN >60 Normal >=60 [facility] Comment on above: Performed By: #### L IPID, CMP, TSH #### [facility] [address] [place] [address] Dr. Ramsey Telles Globulin (S) [Mass/Vol] 3.3 g/dL Normal [facility] Comment on above: Performed By: #### L IPID, CMP, TSH #### [facility] [address] [place] [address] Dr. Ramsey Telles Glucose [Mass/Vol] 103 mg/dL Normal 74-106 [facility] Comment on above: Performed By: #### L IPID, CMP, TSH #### [facility] [address] [place] [address] Dr. Ramsey Telles Potassium [Moles/Vol] 4.0 mmol/L Normal 3.5-5.1 [facility] Comment on above: Performed By: #### L IPID, CMP, TSH #### [facility] [address] [place] [address] Dr. Ramsey Telles Protein [Mass/Vol] 6.9 g/dL Normal 6.4-8.2 [facility] Comment on above: Performed By: #### L IPID, CMP, TSH #### [facility] [address] [place] [address] Dr. Ramsey Telles Sodium [Moles/Vol] 142 mmol/L Normal 136-145 [facility] Comment on above: Performed By: #### L IPID, CMP, TSH #### [facility] [address] [place] [address] Dr. Ramsey Telles Urea nitrogen [Mass/Vol] 15.0 mg/dL Normal 7.0-18.0 [facility] Comment on above: Performed By: #### L IPID, CMP, TSH #### [facility] [address] [place] [address] Dr. Ramsey Telles Urea nitrogen/Creatinine [Mass ratio] 18.5 mg/mg Normal [facility] Comment on above: Performed By: #### L IPID, CMP, TSH #### [facility] [address] [address] [address] Ramsey Telles TSHon 07-01-2022 TSH 1.371 uIU/mL Normal 0.358-3.740 [facility] Comment on above: Performed By: #### L IPID, CMP, TSH #### [facility] [address] [address] [address] Ramsey Telles VITAMIN D 25 OHon 07-01-2022 VIT D 25-OH 44.2 ng/mL Normal [facility] Comment on above: Performed By: #### F T4, VITAD #### [facility] [address] [address] [address] Ramsey Telles VIT D RANGES SEE BELOW Normal [facility] Comment on above: Result Comment: <20 ng/mL Vit D deficient 20 - <30 ng/mL Vit D insufficient 30 - 100 ng/mL Vit D sufficient >100 ng/mL Potential Toxicity Performed By: #### F T4, VITAD #### [facility] [address] [place] [address] Dr. Ramsey Telles Vital Signs Date Time Vital Sign Value Performing Clinician Facility 01-07-2025 16:58-0400 Body height 182.9 cm Edwinbetty Boone [employer] Work Phone: [facility] 01-07-2025 16:58-0400 Body mass index (BMI) [Ratio] 33.36 kg/m2 Ewdin Lause [employer] Work Phone: [facility] 01-07-2025 16:58-0400 Body temperature 98.2 [degF] Edwin Lause [employer] TE[employer] Work Phone: [facility] 01-07-2025 16:58-0400 Body weight 111.58 kg Edwin Lause [employer] TE[employer] Work Phone: [facility] 01-07-2025 16:58-0400 Diastolic blood pressure 82 mm[Hg] Edwin Lause [employer] TE[employer] Work Phone: [facility] 01-07-2025 16:58-0400 Heart rate 80 /min Edwin Lause [employer] TE[employer]ER Work Phone: [facility] 01-07-2025 16:58-0400 Respiratory rate 20 /min Edwin Lause [employer]OR TE[employer]ER Work Phone: [facility] 01-07-2025 16:58-0400 SaO2% (BldA) [Mass fraction] 97 % Edwin Lause [employer] TE[employer] Work Phone: [facility] 01-07-2025 16:58-0400 Systolic blood pressure 140 mm[Hg] Edwin Lause [employer]OR TE[employer]ER Work Phone: [facility] 09-14-2024 12:22-0500 Body height 182.88 cm [facility] 09-14-2024 12:22-0500 Body mass index (BMI) [Ratio] 33.7 kg/m2 [facility] 09-14-2024 12:22-0500 Body temperature 98.1 [degF] [facility] 09-14-2024 12:22-0500 Body weight 112.94 kg [facility] 09-14-2024 12:22-0500 Diastolic blood pressure 75 mm[Hg] [facility] 09-14-2024 12:22-0500 Heart rate 66 /min [facility] 09-14-2024 12:22-0500 Respiratory rate 16 /min [facility] 09-14-2024 12:22-0500 SaO2% (BldA) [Mass fraction] 98 % [facility] 09-14-2024 12:22-0500 Systolic blood pressure 145 mm[Hg] [facility] 09-10-2024 15:22-0500 Body height 182.88 cm [facility] 09-10-2024 15:22-0500 Body mass index (BMI) [Ratio] 34.4 kg/m2 [facility] 09-10-2024 15:22-0500 Body temperature 98 [degF] [facility] 09-10-2024 15:22-0500 Body weight 115.43 kg [facility] 09-10-2024 15:22-0500 Diastolic blood pressure 77 mm[Hg] [facility] 01-08-2025 15:22-0500 Heart rate 82 /min [facility] 09-10-2024 15:22-0500 Respiratory rate 18 /min [facility] 09-10-2024 15:22-0500 SaO2% (BldA) [Mass fraction] 99 % [facility] 09-10-2024 15:22-0500 Systolic blood pressure 146 mm[Hg] [facility] 07-09-2024 16:40-0500 Body height 182.9 cm Edwin Lause MOTOR TEACHER Work Phone: [facility] 07-09-2024 16:40-0500 Body mass index (BMI) [Ratio] 33.5 kg/m2 Edwin Lause [employer]OR TE[employer]ER Work Phone: [facility] 07-09-2024 16:40-0500 Body temperature 97.7 [degF] Edwin Lause MOTOR TEACHER Work Phone: [facility] 07-09-2024 16:40-0500 Body weight 112.04 kg Edwin Lause [employer]OR TEACHER Work Phone: [facility] 07-09-2024 16:40-0500 Heart rate 84 /min Edwin Lause [employer]OR TEACHER Work Phone: [facility] 07-09-2024 16:40-0500 SaO2% (BldA) [Mass fraction] 95 % Edwin Lause [employer]OR TEACHER Work Phone: [facility] 05-28-2024 13:38-0400 Body height 182.9 cm Matti Murcek DO Work Phone: [facility] 05-28-2024 13:38-0400 Body mass index (BMI) [Ratio] 33.09 kg/m2 Matti Murcek DO Work Phone: [facility] 05-28-2024 13:38-0400 Body weight 110.68 kg Matti Murcek DO Work Phone: [facility] 04-28-2024 14:48-0400 Body height 182.9 cm Matti Murcek DO Work Phone: [facility] 04-28-2024 14:48-0400 Body mass index (BMI) [Ratio] 33.09 kg/m2 Matti Goff DO Work Phone: [facility] 04-28-2024 14:48-0400 Body weight 110.68 kg Matti Goff DO Work Phone: [facility] 04-21-2024 13:50-0400 Diastolic blood pressure 63 mm[Hg] MD Ta Rodriguez Work Phone: [facility] 04-21-2024 13:50-0400 Heart rate 91 /min MD Ta Rodriguez Work Phone: [facility] 04-21-2024 13:50-0400 Respiratory rate 16 /min MD Ta Rodriguez Work Phone: [facility] 04-21-2024 13:50-0400 SaO2% (BldA) [Mass fraction] 96 % MD Ta Rodriguez Work Phone: [facility] 04-21-2024 13:50-0400 Systolic blood pressure 122 mm[Hg] MD Ta Rodriguez Work Phone: [facility] 04-21-2024 12:31-0400 Body temperature 97.3 [degF] MD Ta Rodriguez Work Phone: [facility] 04-21-2024 12:31-0400 Inhaled oxygen flow rate 6 L/min MD Ta Rodriguez Work Phone: [facility] 04-21-2024 10:05-0400 Body height 182.88 cm MD Ta Rodriguez Work Phone: [facility] 04-21-2024 10:05-0400 Body weight 111 kg MD Ta Rodriguez Work Phone: [facility] Encounters Encounter Date Encounter Type Care Provider Facility Start: 01-27-2025 End: 01-27-2025 Office outpatient visit 15 minutes Angela Cummings MD Work Phone: [facility] Comment on above: Capillary angioma (P rimary Dx); Actinic keratosis; Lentigines; History of SCC (squamous cell carcinoma) of skin; History of basal cell carcinoma Start: 01-27-2025 End: 01-27-2025 ambulatory ANGELAIVELISSE SUAREZI Not Available Start: 01-27-2025 End: 01-27-2025 Bamboo flowsheet Angela Cummings MD Work Phone: [facility] Start: 01-27-2025 End: 01-27-2025 Bamboo flowsheet Angela Cummings MD Work Phone: [facility] Start: 01-07-2025 End: 01-07-2025 ambulatory EDWIN BOONE Not Available Start: 01-07-2025 End: 01-07-2025 Patient encounter status Edwin Boone MOTOR TEACHER Work Phone: [facility] Work Phone: Start: 01-07-2025 End: 01-07-2025 Periodic preventive med est patient 40-64yrs Edwin Boone MOTOR TEACHER Work Phone: [facility] Comment on above: Adult wellness visit (Primary Dx); Gastroesophageal reflux disease without esophagitis; Essential hypertension (CMS/HCC); Mixed hyperlipidemia (CMS/HCC) Start: 09-14-2024 End: 09-14-2024 ambulatory [facility] Work Phone: Start: 09-14-2024 End: 09-14-2024 Patient encounter procedure [facility] Work Phone: Start: 09-10-2024 End: 09-10-2024 ambulatory [facility] Work Phone: Start: 09-10-2024 End: 09-10-2024 Patient encounter procedure [facility] Work Phone: Start: 07-29-2024 End: 07-29-2024 ambulatory ANGELA A PETITTI Not Available Start: 07-29-2024 End: 07-29-2024 Office outpatient visit 15 minutes Angela A Petitti MD Work Phone: [facility] Comment on above: Angioma of skin (Ingrid dora Dx); Actinic keratosis; Neoplasm of unspecified behavior of bone, soft tissue, and skin; Lentigines Start: 07-09-2024 End: 07-09-2024 Office outpatient visit 25 minutes Edwin Boone MOTOR TEACHER Work Phone: [facility] Comment on above: Left sciatic nerve p ain (Primary Dx); Mixed hyperlipidemia (CMS/HCC); Essential hypertension (CMS/HCC); Gastroesophageal reflux disease without esophagitis; Encounter for vitamin deficiency screening; Screening for lipid disorders; Adult general medical examination; Screening for thyroid disorder; Encounter for screening for malignant neoplasm of colon Start: 07-09-2024 End: 07-09-2024 Patient encounter status Edwin Boone MOTOR TEACHER Work Phone: [facility] Start: 07-09-2024 End: 07-09-2024 ambulatory EDWIN BOONE Not Available Start: 05-28-2024 End: 05-28-2024 Bamboo flowsheet Matti Ravi Shell DO Work Phone: [facility] [place] Start: 05-28-2024 End: 05-28-2024 Bamboo flowsheet Matti Goff DO Work Phone: [facility] [place] Start: 05-28-2024 End: 05-28-2024 Postop follow up visit related to original px Matti Goff DO Work Phone: [facility] [place] Comment on above: 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); 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 Start: 05-28-2024 End: 05-28-2024 ambulatory MATTI GOFF Not Available Start: 04-28-2024 End: 04-28-2024 Postop follow up visit related to original px Matti Goff DO Work Phone: [facility] [place] Comment on above: 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); 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 Start: 04-28-2024 End: 04-28-2024 ambulatory MATTI GOFF Not Available Start: 04-28-2024 End: 04-28-2024 Bamboo flowsheet Matti Goff DO Work Phone: [facility] [place] Start: 04-28-2024 End: 04-28-2024 Bamboo flowsheet Matti Goff DO Work Phone: [facility] [place] Start: 04-21-2024 End: 04-21-2024 ambulatory MATTI GOFF Not Available Start: 04-21-2024 End: 04-21-2024 Admission to same day surgery center MD Ta Rodriguez Work Phone: [facility] [place] Start: 04-21-2024 End: 04-21-2024 ambulatory MD Ta Rodriguez Work Phone: [facility] Work Phone: Start: 04-07-2024 End: 04-07-2024 Patient encounter procedure MD Ta Rodriguez Work Phone: [facility] Work Phone: Start: 04-07-2024 End: 04-07-2024 ambulatory MD Ta Rodriguez Work Phone: [facility] Work Phone: Start: 04-07-2024 Encounter for preprocedural laboratory examination Matti Goff [facility] Start: 04-02-2024 End: 04-02-2024 ambulatory MATTI GOFF Not Available Start: 03-18-2024 End: 03-18-2024 ambulatory ANGELA CUMMINGS Not Available Start: 09-16-2022 End: 09-17-[address] TA RODRIGUEZ Facility:[facility] Start: 07-01-2022 End: 07-02-2022 ambulatory LUZ MARIE Facility:[facility] Procedures Date Procedure Procedure Detail Performing Clinician Start: 01-27-2025 CRYOTHERAPY SKIN LESION Angela Cummings MD Work Phone: Start: 07-29-2024 SKIN / NAIL BIOPSY Skip Cummings MD Work Phone: Start: 07-29-2024 CRYOTHERAPY SKIN LESION Angela Cummings MD Work Phone: Start: 04-21-2024 Excision of lesion raymundo Rodriguez Work Phone: Plan of Treatment Date Care Activity Detail Author Start: 01-07-2026 End: 01-07-2026 Patient encounter procedure 01/07/2026 4:40 PM EDT Office Visit [facility] [address] [place] [address] Edwin Boone, MOTOR TEACHER [address] [place] [phone] [facility] Start: 08-04-2025 End: 08-04-2025 Patient encounter procedure 08/04/2025 4:00 PM EST Office Visit [facility] [address] [place] [address] Angela Cummings MD [address] [place], [place] [id number] [facility] Start: 05-04-2025 Influenza vaccination Influenza Vaccine (Season Ended) [facility] Start: 03-02-2025 Influenza vaccination Influenza Vaccine (#1) [facility] Comment on above: Postponed from 05/04/2024 (Patient Refus ed) Start: 01-31-2025 Screening for malignant neoplasm of colon [facility] Start: 01-27-2025 End: 01-27-2025 Patient encounter procedure [facility] Comment on above: Arrived Start: 01-07-2025 End: 01-07-2025 Patient encounter procedure 01/07/2025 5:40 PM EDT Office Visit [facility] [address] [place] [address] Edwin Boone, MOTOR TEACHER [address] [place] [phone] [facility] Start: 07-29-2024 End: 07-29-2024 Patient encounter procedure 07/29/2024 9:50 AM EST Office Visit [facility] [address] [place] [address] Angela Cummings MD [address] [place] [address] [facility] Start: 07-09-2024 End: 07-09-2025 25-hydroxyvitamin D3 [Mass/volume] in Serum or Plasma Vitamin D 25 hydroxy Total Lab Routine Encounter for vitamin deficiency screening Expected: 07/09/2024 (Approximate), Expires: 07/09/2025 [facility] Work Phone: Comment on above: Expected: 07/09/2024 (Approximate), Expi res: 07/09/2025 Start: 07-09-2024 End: 07-09-2025 Cobalamin (Vitamin B12) [Mass/volume] in Serum or Plasma Vitamin B12 Lab Routine Encounter for vitamin deficiency screening Expected: 07/09/2024 (Approximate), Expires: 07/09/2025 [facility] Comment on above: Expected: 07/09/2024 (Approximate), Expi res: 07/09/2025 Start: 07-09-2024 End: 07-09-2025 Noninvasive colorectal cancer DNA and occult blood screening [Presence] in Stool Cologuard colon cancer screening Lab Routine Encounter for screening for malignant neoplasm of colon Expected: 07/09/2024 (Approximate), Expires: 07/09/2025 [facility] Comment on above: Expected: 07/09/2024 (Approximate), Expi res: 07/09/2025 Start: 07-09-2024 End: 07-09-2025 Thyroxine (T4) free [Mass/volume] in Serum or Plasma T4, free Lab Routine Screening for thyroid disorder Expected: 07/09/2024 (Approximate), Expires: 07/09/2025 [facility] Comment on above: Expected: 07/09/2024 (Approximate), Expi res: 07/09/2025 Start: 06-25-2024 End: 06-25-2024 Patient encounter procedure 06/25/2024 5:40 PM EDT Office Visit [facility] [address] [place] [id number] Edwin Boone, MOTOR TEACHER [address] [place] [id number] [facility] Start: 06-16-2024 End: 06-16-2024 Patient encounter procedure 06/16/2024 4:05 PM EDT Office Visit [facility] [address] [place] [phone] Angela Cummings MD [address] [place] [address] [facility] Start: 05-28-2024 End: 05-28-2024 Patient encounter procedure 05/28/2024 1:30 PM EDT Office Visit [facility] [place] [address] [place] [phone] Matti Goff, DO [address] [place] [address] Arrived [facility] [place] Comment on above: Arrived Start: 05-04-2024 Influenza vaccination Influenza Vaccine (#1) [facility] Start: 04-28-2024 End: 04-28-2024 Patient encounter procedure 04/28/2024 2:45 PM EDT Office Visit [facility] [place] [address] [place] [phone] Matti Goff, DO [address] [place] [address] Arrived [facility] [place] Comment on above: Arrived Start: 04-21-2024 [facility] Start: 04-21-2024 [facility] Start: 1970 Screening for malignant neoplasm of colon [facility] CBC W Auto Different ial panel - Blood CBC auto differential Lab Routine Adult general medical examination Ordered: 07/09/2024 [facility] Comment on above: Ordered: 07/09/2024 Comprehensive metabo lic 2000 panel - Serum or Plasma Comprehensive metabolic panel Lab Routine Adult general medical examination Ordered: 07/09/2024 [facility] Comment on above: Ordered: 07/09/2024 Dermatopathology exam Dermatopat hology exam Pathology and Cytology Timed Neoplasm of unspecified behavior of bone, soft tissue, and skin Release Upon Ordering for 1 Occurrences starting 07/29/2024 [facility] Work Phone: Comment on above: Release Upon Ordering for 1 Occurrences starting 07/29/2024 Lipid 1996 panel - S chandler or Plasma Lipid panel Lab Routine Screening for lipid disorders Ordered: 07/09/2024 [facility] Comment on above: Ordered: 07/09/2024 Patient Education Know your Meds [facility] Work Phone: Patient referral [facility] Work Phone: Thyrotropin [Units/volume] in Serum or Plasma TSH Lab Routine Screening for thyroid disorder Ordered: 07/09/2024 [facility] Comment on above: Ordered: 07/09/2024 Payers Date Payer Category Payer Self-pay [id number] 2004 [facility] er [id number] 2004 Unknown BCBS BCBS xxxxxx [id number] 2004-Present [phone] [address] [place] [address] [id number] 1971 Unknown [id number]. 2.593 1971 Unknown [id number] 2.16840.1.645189.3.579. 2.593 1971 Unknown [id number] 2.840.1.577331.3.579. 2.1258 1971 Unknown [id number] 2.840.1.931832.3.579. 2.1258 1971 Unknown [id number] 2.840.1.185439.3.579. 2.1258 1971 Unknown [id number] 2.840.1.408197.3.579. 2.1258 1971 Unknown [id number] 2.840.1.574579.3.579. 2.1258 1971 Unknown [id number] [id number]. 2.1258 1971 Unknown [id number] .840.1.230421.3.579. 2.1258 1971 Unknown [id number] [id number]. 2.1258 1971 Unknown [id number] .[id number]. 2.9 1959 Unknown [id number] Unknown [id number] [id number]. 2.531 Unknown [id number] [id number]. 2.531 Social History Date Type Detail Facility Tobacco smoking stat [facility] Unknown if ever smoked [facility] Work Phone: Start: 1970 Sex Assigned At Male [facility] Start: 06-12-2023 End: 04-21-2024 Tobacco smoking status NHIS Never smoked tobacco (finding) [facility] Start: 06-12-2023 Tobacco use and exposure Smokeless tobacco non-user [facility] Start: 07-09-2024 End: 01-27-2025 Alcoholic beverage intake Ex-drinker (finding) [facility] Start: 07-03-2023 End: 01-07-2025 History of Social function [facility] Start: 07-03-2023 End: 01-07-2025 Humiliation, Afraid, Rape, and Kick questionnaire [HARK] [facility] Within the last year , have you been afraid of your partner or ex-partner? No [facility] How often do you get together with friends or relatives? Patient declined [facility] Are you now , , , , never or living with a partner? [facility] How often to you hav e a drink containing alcohol? Monthly or less [facility] How many standard dr inks containing alcohol do you have on a typical day? 1 or 2 [facility] How often do you hav e 6 or more drinks on 1 occasion? Never [facility] How hard is it for y ou to pay for the very basics like food, housing, medical care, and heating Not very hard [facility] Do you feel stress - tense, restless, nervous, or anxious, or unable to sleep at night because your mind is troubled all the time - these days [OSQ] Not at all [facility] (I/We) worried jam er (my/our) food would run out before (I/we) got money to buy more. Never true [facility] Start: 06-26-2023 Alcohol Comment caffeine >4 cups/day; coffee/soda [facility] Start: 1970 Sex assigned at Not on file [facility] Start: 06-05-2023 Gender identity Identifies as male gender (finding) [facility] Start: 09-10-2024 End: 09-14-2024 Sex Male (finding) [facility] Goals Date Patient Goal Desired Activity /State Functional Status Date Assessment Result Facility 01-07-2025 Total score [AUDIT-C] 0 01/08/20 4:58 PM EDT Kylie Brady MA [facility] 01-07-2025 Patient Health [facility] ionnaire 2 item (PHQ-2) [Reported] [facility] Clinical Notes 04-21-2024 to 01-27-2025 Angela Cummings MD - 01/27/2025 4:05 PM EDTEdwin Boone NP - 01/07/2025 4:40 PM EDT Note Date & Type Note Facility 01-27-2025 History of Presen t illness Narrative Skin Check Location: Patient requests a skin [...] Fossa, Mid Parietal Scalp (3), Right Mid [place] Erythematous scaly papules Patient was counseled regarding these sun-induced growths that can develop into squamous cell carcinoma if left untreated. Discussed treatment with cryotherapy. It was emphasized that any treated lesions that fail to resolve should be re-evaluated. Cryotherapy performed today; see procedure note Diagnosis: Actinic keratosis Indication: Precancerous Location: see skin exam Consent: Verbal consent was obtained and risks were discussed, including, but not limited to risks of scarring, darker or science education professor pigmentary changes, recurrence, incomplete removal and infection. [...] Fossa, Mid Parietal Scalp (3), Right Mid [place] 3. LENTIGINES (2) Generalized, Head - Anterior (Face) Scattered jonas macules in sun-exposed areas. The patient was informed that lentigines are benign pigmented lesions that occur on sun-exposed and sun-damaged skin. No treatment is necessary. Recommended regular [...] Visit: 6 months documented in this encounter [facility] 01-07-2025 History of Presen t illness Narrative Family Medicine Note Subjective: Chief Complaint: Wellness, medication refills HPI: Fredo Luke presents to the office today for adult wellness visit. He is due for lab work and was provided with lab orders in office today. He is also due for colon cancer screening and would like to complete cologuard. He is requesting his medications be sent to his pharmacy. He denies further complaints or concerns at this time. Current Outpatient Medications: atorvastatin (Lipitor) 20 MG tablet, Take 1 tablet (20 mg) by mouth 1 (one) time each day at the same time, Disp: 90 tablet, Rfl: 3 lisinopril-hydroCHLOROthiazide 20-25 MG tablet, Take 1 tablet by mouth 1 (one) time each day at the same time, Disp: 90 tablet, Rfl: 3 Multiple Vitamin (multivitamin) capsule, Take 1 capsule by mouth Daily, Disp: , Rfl: omeprazole (PriLOSEC) [address] capsule, Take 1 capsule (20 mg) by mouth 1 (one) time each day at the same time, Disp: 90 capsule, Rfl: 3 Medical History: Past Medical History: Diagnosis Date Allergies Basal cell carcinoma GERD (gastroesophageal reflux disease) Gout HLD (hyperlipidemia) ([facility]) HTN (hypertension) ([facility]) Allergies: No Known Allergies Social History: Tobacco Use: Tobacco Use: Low Risk (01/07/2025) Patient History Smoking Tobacco Use: Never Smokeless Tobacco Use: Never Passive Exposure: Not on file Objective: Vitals: 01/07/25 1658 BP: 140/82 Pulse: 80 Resp: 20 Temp: 98.2 F SpO2: 97% Weight: 246 lb Height: 6' Physical Exam Vitals and nursing note reviewed. Constitutional: General: He is not in acute distress. Appearance: Normal appearance. He is not ill-appearing. HENT: Head: Normocephalic and atraumatic. Right Ear: External ear normal. Left Ear: External ear normal. Nose: Nose normal. Mouth/Throat: Mouth: Mucous membranes are moist. Eyes: Extraocular Movements: Extraocular movements intact. Pupils: Pupils are equal, round, and reactive to light. Cardiovascular: Rate and Rhythm: Normal rate. Pulses: Normal pulses. Heart sounds: No murmur heard. Pulmonary: Effort: Pulmonary effort is normal. Breath sounds: No wheezing, rhonchi or rales. Abdominal: General: Bowel sounds are normal. There is no distension. Tenderness: There is no abdominal tenderness. Musculoskeletal: General: Normal range of motion. Cervical back: Normal range of motion. Skin: General: Skin is warm and dry. Neurological: General: No focal deficit present. Mental Status: He is alert and oriented to person, place, and time. Psychiatric: Mood and Affect: Mood normal. Behavior: Behavior normal. Judgment: Judgment normal. Assessment: Assess/Plan Problem List Items Addressed This Visit None Visit Diagnoses Adult wellness visit - Primary Wellness performed at office visit today. Height, weight, BMI, problem list, and immunizations records reviewed. Encourage annual vision screenings and semi-annual dental care. Encourage to eat a diet that is rich in plant-based foods and lean protein. Encourage regular periods of exercise. Limit or eliminate junk food and sources of excess calories. Encourage to maintain open communication with provider regarding any changes in condition. Encourage 150 minutes of exercise weekly or amount appropriate to current level of function. Identify family/friend/social support and maintaining emotional connections. Follow-up as discussed. Patient verbalized importance of keeping open communication with health care providers. Follow-up: Follow up in about 1 year (around 01/07/2026) for Wellness, medication refills . documented in this encounter [facility] 09-10-2024 Evaluation note Diagnosis Onset Date Resolution Acute left otitis media acute September 10 3:14pm Acute left otitis media acute September 14 11:20am Left ear impacted cerumen acute September 14 11:20am [facility] Work Phone: 1(139) 148-610611-26-2024 History of Present illness Narrative* Angela Cummings MD - 07/29/2024 9:50 AM EST Skin Check Location: Patient requests a skin examination from the waist up Dermatologic history: history of Actinic Keratosis, history of Basal Cell Carcinoma, history of Squamous Cell Carcinoma Last visit: 1 year ago Established patient All pertinent medical history, medications, and allergies were reviewed. General Exam: alert, oriented to person, place, and time, normal affect, well appearing Unaccompanied A complete skin exam was offered, pt declined. Areas not examined despite medical recommendation: From the waist down Scalp, Examined Head, Face Examined Neck Examined Chest Examined Back Examined Abdomen Examined Right arm Examined Left arm Examined Hands Examined Digits,nails: Examined Lymphatics: Not examined 1. Lentigines (3) Arms, Head, Trunk Scattered jonas macules in sun-exposed areas. The patient was informed that lentigines are benign pigmented lesions that occur on sun-exposed andsun-damaged skin. No treatment is necessary. Recommended regular use of broad spectrum sunscreen SPF 30 or higher 2. Actinic keratosis (21) Left Buccal Cheek (2), Left Ear, Left Upper Eyelid, Mid Parietal Scalp (15), Right Buccal Cheek, Right Wrist - Posterior Erythematous scaly papules Patient was counseled regarding [...] limited to risks of scarring, darker or science education professor pigmentary changes, recurrence, incomplete removal and infection. Method: Liquid nitrogen was used to treat the lesion(s) with two 5-10 second freeze-thaw cycles. Eyes were shielded using cotton pad during procedure Number of lesions treated: 21 Post-procedure instructions: Instructions were given orally and in writing. The office will be contacted if the lesion fails to resolve despite treatment, or if a side effect develops such as abnormal crusting, scabbing, redness or tenderness Patient elected for treatment with Efudex. Educated on Efudex treatment. Apply to Scalp twice a dayfor two weeks. Discussed that treated areas will become red, crusty, and inflamed. If areas become too uncomfortable, patient may use OTC hydrocortisone cream to help decrease irritation and can discontinue treatment early. Sun exposure should be avoided during treatment. Patient instructed to contact office for any questions or issues during treatment. Lesions that fail to resolve once treated area is healed should be re-evaluated in the office. Handout given to patient Cryotherapy, skin lesion - Left Buccal Cheek (2), Left Ear, Left Upper Eyelid, Mid Parietal Scalp (15), Right Buccal Cheek, Right Wrist - Posterior Related Medications fluorouracil (Efudex) 5 % cream Apply to directed areas on the scalp twice a day x 14 days. Dispense 30 day supply but only use for14 days. 3. Neoplasm of unspecified behavior of bone, soft tissue, and skin Left Occipital Scalp Gargatha papule Lesion biopsy Type of biopsy: tangential Informed consent: discussed and consent obtained Informed consent comment: The risks and benefits of the biopsy were discussed. Risks include but are not limited to bleeding, infection, scarring, pain, and nerve damage. An opportunity to ask questions prior to the procedure was permitted and all questions were answered. Patient was prepped and draped in usual sterile fashion: area cleansed with alcohol. Anesthesia: the lesion was anesthetized in a standard fashion Anesthetic: 1% lidocaine w/ epinephrine 1-100,000 buffered w/ 8.4% NaHCO3 Instrument used: DermaBlade Hemostasis achieved with: electrodesiccation Outcome: patient tolerated procedure well Outcome comment: The specimen was placed in a prelabeled formalin container to be sent for pathology Post-procedure details: sterile dressing applied and wound care instructions given Post-procedure details comment: Emphasized need to contact clinic for any signs of infection, uncontrollable bleeding, or complications. Dressing type: bandage Additional details: Photo taken yes Amount of lidocaine used: 0.5 cc Specimen A - Dermatopathology exam Differential Diagnosis: BCC vs. Suture granuloma, noted in previous surgery scar Check Margins: yes Size of lesion: 1.0 x 0.8 cm 4. Angioma of skin Trunk Scattered friedman-red papule(s). The patient was informed that angiomas are benign growths on the the skin. No treatment is necessary. Next Visit: 6 months [id number] History of Present illness Narrative* Matti Goff DO - 05/28/2024 1:30 PM EDT HPI Patient presents today a month postop excision and repair of skin cancers with left cheek and left neck. He is doing well. Relevant postoperative physical examination The left cheek flap is nearly imperceptible. A small residual suture was removed. The left neck repair looks great and the flap has had a Assessment/plan Feng was seen today for cancer. 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 He is doing great. Final pathology shows complete removal. Relevant postoperative physical examination Sutures and sal are removed, wound healing very well. Flap 100 percent viable. Assessment/plan Feng was seen today for post-op. 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 Do not lie on left neck or cheek 2. Small amount of Vaseline to sutures and sal twice daily 3. No lifting or straining 4. Take antibiotic as prescribed 5. Tylenol or Motrin for discomfort 6. Okay to shower in the morning, keep wounds dry and clean 7[facility] Evaluation noteNo assessment information available [facility] Work Phone: Evaluation note* Diagnosis Left sciatic nerve pain- Primary Mixed hyperlipidemia (CMS/HCC) Mixed hyperlipidemia Essential hypertension (CMS/HCC) Unspecified essential hypertension Gastroesophageal reflux disease without esophagitis Esophageal reflux Encounter for vitamin deficiency screening Screening for lipid disorders Adult general medical examination Unspecified general medical examination Screening for thyroid disorder Encounter for screening for malignant neoplasm of colon [facility] Diagnosis Angioma of skin- Primary Actinic keratosis Neoplasm of unspecified behavior of bone, soft tissue, and skin Lentigines [facility]* Diagnosis Cancer of skin of external cheek- Primary 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 [facility]* Diagnosis Onset Date Resolution Status Admit Date Acute left otitis media acute J anuary 2024 3:14pm [facility] Work Phone: Evaluation note* Diagnosis Adult wellness visit- Primary Gastroesophageal reflux disease without esophagitis Esophageal reflux Essential hypertension (CMS/HCC) Unspecified essential hypertension Mixed hyperlipidemia (CMS/HCC) Mixed hyperlipidemia [facility] Diagnosis Capillary angioma- Primary Nevus, non-neoplastic Actinic keratosis Lentigines History of SCC (squamous cell carcinoma) of skin Personal history of other malignant neoplasm of skin History of basal cell carcinoma Personal history of other malignant neoplasm of skin documented in this [facility] Narrative* Edwin Boone, MOTOR TEACHER - 07/09/2024 5:40 PM EST Family Medicine Note Subjective: Chief Complaint: CIM HPI: Fredo Luke presents to the office today for chronic illness management visit. He is due formedication refills which will be sent to his pharmacy today. He does have complaints of previous left sciatic pain which has caused left foot numbness and tingling. He states that this has been on going over the past year and he would like to be evaluated by physical therapy. He is due for [facility]which [facility]. He denies further complaints or concerns at this time. Current Outpatient Medications: Multiple Vitamin (multivitamin) capsule, Take 1 capsule by mouth Daily, Disp: , Rfl: saccharomyces boulardii (Florastor) 250 MG capsule, Take 250 mg by mouth in the morning and 250 mg before bedtime., Disp: , Rfl: atorvastatin (Lipitor) 20 MG tablet, Take 1 tablet (20 mg) by mouth 1 (one) time each day at the same time, Disp: 90 tablet, Rfl: 3 lisinopril-hydroCHLOROthiazide 20-25 MG tablet, Take 1 tablet by mouth 1 (one) time each day at thesame time, Disp: 90 tablet, Rfl: 3 omeprazole (PriLOSEC) [address] capsule, Take 1 capsule (20 mg) by mouth 1 (one) time each day at the same time, Disp: 90 capsule, Rfl: 3 Medical History: Past Medical History: Diagnosis Date Allergies Basal cell carcinoma GERD (gastroesophageal reflux disease) Gout HLD (hyperlipidemia) (CMS/HCC) HTN (hypertension) (CMS/HCC) Allergies: No Known Allergies Social History: Tobacco Use: Tobacco Use: Low Risk (07/09/2024) Patient History Smoking Tobacco Use: Never Smokeless Tobacco Use: Never Passive Exposure: Not on file Objective: Vitals: 07/09/24 1640 Pulse: 84 Temp: 97.7 F TempSrc: Temporal SpO2: 95% Weight: 247 lb Height: 6' Physical Exam Vitals and nursing note reviewed. Constitutional: General: He is not in acute distress. Appearance: Normal appearance. He is not ill-appearing. HENT: Head: Normocephalic and atraumatic. Right Ear: External ear normal. Left Ear: External ear normal. Nose: Nose normal. Mouth/Throat: Mouth: Mucous membranes are moist. Eyes: Extraocular Movements: Extraocular movements intact. Pupils: Pupils are equal, round, and reactive to light. Cardiovascular: Rate and Rhythm: Normal rate. Pulses: Normal pulses. Heart sounds: No murmur heard. Pulmonary: Effort: Pulmonary effort is normal. Breath sounds: No wheezing, rhonchi or rales. Abdominal: General: Bowel sounds are normal. There is no distension. Tenderness: There is no abdominal tenderness. Musculoskeletal: General: Normal range of motion. Cervical back: Normal range of motion. Skin: General: Skin is warm and dry. Neurological: General: No focal deficit present. Mental Status: He is alert and oriented to person, place, and time. Psychiatric: Mood and Affect: Mood normal. Behavior: Behavior normal. Judgment: Judgment normal. Assessment: Assess/Plan Problem List Items Addressed This Visit Essential hypertension ([facility]) Relevant Medications lisinopril-hydroCHLOROthiazide 20-25 MG tablet Possible complications of uncontrolled hypertension include stroke, congestive heart failure, heartattack, loss of vision, and kidney failure. Please complete labs as directed and call our office inone week if you have not received your lab results. Patient is encouraged to reduce salt in diet and to exercise at least 150 minutes per week. Avoid tobacco use and alcohol consumption. Please take all medications as prescribed. Mixed hyperlipidemia (CMS/HCC) Relevant Medications atorvastatin (Lipitor) 20 MG tablet Medication as directed. Discussed importance of maintaining LDL at specified goal. Discussed risks associated with hyperlipidemia including stroke and heart attack. Medications as directed. Discusseddietary modifications, including decreasing red meat consumption, decreasing alcohol consumption, avoiding fried fatty foods and cakes, cookies, and sweets. Encouraged to increase fiber in diet and eat a diet rich in omega-3. Encouraged to exercise at least 150 minutes weekly. Barriers to the plan of care have been addressed. Obtain labs as directed and call our office if you have not received the lab results within one week. Follow up as directed. Other Visit Diagnoses Left sciatic nerve pain - Primary Relevant Orders Ambulatory referral to Physical Therapy He does have complaints of lateral left foot numbness which has been on going over the past year since a bout of sciatica. He is requesting that he be referred to physical therapy to assist with treatment of his sciatic pain and left foot numbness. This will be sent today. Gastroesophageal reflux disease without esophagitis Relevant Medications omeprazole (PriLOSEC) [address] capsule The patient was advised on high acid food triggers such as caffeine products, fruits high in acid, spicy foods and to follow bland diet management measures for acute flare. Lifestyle changes include weight loss for overweight people; head-of-bed elevation; and avoidance of late-night eating if nocturnal symptoms are present. Take medication as prescribed. All questions answered. Please call the office with any other questions or concerns. Encounter for vitamin deficiency screening Relevant Orders Vitamin D 25 hydroxy Total Vitamin B12 Screening for lipid disorders Relevant Orders Lipid panel Adult general medical examination Relevant Orders Comprehensive metabolic panel CBC auto differential Screening for thyroid disorder Relevant Orders T4, free TSH Encounter for screening for malignant neoplasm of colon Relevant Orders Cologuard colon cancer screening Follow-up: Follow up in about 6 months (around 01/06/2025) for Wellness, lab review. documented in this encounterN[facility] Summary Purpose Family History No Family History Records Found Relationship Condition Age at Onset Recorded Date/T jian father Dementia Unknown Heart disease Unknown Malignant neoplasm of skin Unknown mother Presence of cardiac pacemaker Unknown Advance Directives No Advanced Directives Records Found Advance Directive Response Recorded Date/ Time Advance Directives No January 04, 2019 11:37am Advance Directive Response Recorded Date/ Time Advance Directives No January 04, 2019 10:37am Chief Complaint and Reason for Visit Chief Complaint Skin Cancer Chief Complaint Skin Cancer Skin Cancer Chief Complaint Admit Date left ear infection September 10, 2024 3: 14pm Reason for Visit Admit Date Acute left otitis media September 10 3:14pm Chief Complaint Admit Date left ear infection September 10, 2024 3: 14pm Earache September 14, 2024 1 1:20am Reason for Visit Admit Date Acute left otitis media September 10 3:14pm Acute left otitis media September 14 11:20am Left ear impacted cerumen September 14, 2024 11:20am Additional Source Comments (unrecognized sect ion and content) No Status Records FoundNo Status Records FoundNo Status Records Found INFORMATION SOURCE (unrecogn ized section and content) DATE CREATED AUTHOR 09/16/2022 [facility] DATE CREATED AUTHOR AUTHOR'S ORGANIZ ATION 05/24/2024 [facility] DATE CREATED AUTHOR AUTHOR'S ORGANIZ ATION 01/30/2025 [facility] EPIC Care Teams (unrecognized sec tion and content) Team Status: Active Member Role Status Dates Ta Rodriguez MD Primary Care Provider Active Team Status: Inactive Member Role Status Dates Matti Goff DO Attending Provider Active S tart: April 07, 2024 End: April 07, 2024 Ta Rodriguez MD Primary Care Provider Active S tart: April 07, 2024 End: April 07, 2024 Team Status: Inactive Member Role Status Dates Matti Goff DO Attending Provider Active S tart: April 21, 2024 End: April 21, 2024 Ta Rodriguez MD Primary Care Provider Active S tart: April 21, 2024 End: April 21, 2024 [employer] Relationship Specialty Start Date End Date Ta Rodriguez MD [address] [place] [address] PCP - General Family Medicine 01/09/23 Edwin Boone NP [address] [place] [address] PCP - [facility] 03/03/24 Theodora Gamble NP [address] [place] [address] Nurse Practitioner Family Medicine 06/29/23 Edwin Boone NP [address] [place] [address] Nurse Practitioner Pulmonary Disease 06/29/23 Angela Cummings MD [address] [place] [address] Referring Physician Dermatology 05/28/24 Matti Goff, DO [address] [place] [place] [address] Otolaryngology 05/28/24 [employer] Relationship Specialty Start Date End Date Ta Rodriguez MD [address] [place] [address] PCP - General Family Medicine 01/09/23 Edwin Boone [employer] TE[employer] [address] [place] [address] PCP - [facility] 03/03/24 Theodora Gamble NP [address] [place] [address] Nurse Practitioner Family Medicine 06/29/23 Edwin Boone NP [address] [place] [address] Nurse Practitioner Pulmonary Disease 06/29/23 Angela Cummings MD [address] [place] [address] Referring Physician Dermatology 05/28/24 Matti Goff DO [address] [place] [address] Otolaryngology 05/28/24 [employer] Relationship Specialty Start Date End Date Ta Rodriguez MD [address] [place] [address] PCP - General Family Medicine 01/09/23 Edwin Boone NP [address] [place] [phone] PCP - [facility] 03/03/24 Theodora Gamble NP [address] [place] [id number] Nurse Practitioner Family Medicine 06/29/23 Edwin Boone NP [address] [place] [address] Nurse Practitioner Pulmonary Disease 06/29/23 Imagery Intelligence Relationship Specialty Start Date End Date Ta Rodriguez MD [address] [place] [address] PCP - General Family Medicine 01/09/23 Edwin Boone [employer] TE[employer] [address] [place] [phone] PCP - [facility] 03/03/24 Theodora Gamble NP [address] [place] [address] Nurse Practitioner Family Medicine 06/29/23 Edwin Boone NP [address] [place] [address] Nurse Practitioner Pulmonary Disease 06/29/23 Im[employer]ery Intelligence Relationship Specialty Start Date End Date Ta Rodriguez MD [address] [place] [address] PCP - General Family Medicine 01/09/23 Edwin Boone [employer] [address] [place] [id number] [facility] Theodora Gamble NP [address] [place] [address] Nurse Practitioner Family Medicine 06/29/23 Edwin Boone NP [address] [place] [address] Nurse Practitioner Pulmonary Disease 06/29/23 Angela Cummings MD [address] [place] [address] [place] [address] Referring Physician Dermatology 05/28/24 Matti Goff DO [address] [place] [address] Otolaryngology 05/28/24 [employer]ery Intelligence Relationship Specialty Start Date End Date Ta Rodriguez MD [address] [place] [address] PCP - General Family Medicine 01/09/23 Edwin Boone NP [address] [place] [address] PCP - [facility] 03/03/24 Theodora Gamble, NANDO [address] [place] [address] Nurse Practitioner Family Medicine 06/29/23 Edwin Boone, [employer] [address] [place] [address] Nurse Practitioner Pulmonary Disease 06/29/23 Angela Cummings MD [address] [place] [address] [place] [address] Referring Physician Dermatology 05/28/24 Matti Goff DO [address] [place] [address] Otolaryngology 05/28/24 Team Status: Inactive Member Role Status Dates Ta Rodriguez MD Primary Care Provider Active S tart: September 10, 2024 End: September 10, 2024 Bernie Torres APRN Attending Provider Active S tart: September 10, 2024 End: September 10, 2024 Team Status: Inactive Member Role Status Dates Ta Rodriguez MD Primary Care Provider Active S tart: September 14, 2024 End: September 14, 2024 Kelly Lobo APRN Attending Provider Active Start: September 14, 2024 End: September 14, 2024 Imagery Intelligence Relationship Specialty Start Date End Date Ta Rodriguez MD [address] [place] [address] PCP - General Family Medicine 01/09/23 Edwin Boone NP [address] [place] [address] PCP - [facility] 03/03/24 Edwin Boone NP [address] [place] [address] Nurse Practitioner Pulmonary Disease 06/29/23 Angela Cummings MD [address] [facility] [address] [place] [address] Referring Physician Dermatology 05/28/24 Matti Goff DO [address] [place] [address] Otolaryngology 05/28/24 Imagery Intelligence Relationship Specialty Start Date End Date Ta Rodriguez MD [address] [place] [address] PCP - General Family Medicine 01/09/23 Edwin Boone, [employer] TE[employer] [address] [place] [address] Nurse Practitioner Pulmonary Disease 06/29/23 Angela Cummings MD [address] [address] [place] [address] Referring Physician Dermatology 05/28/24 Matti Goff DO [address] [place] [address] Otolaryngology 05/28/24 Imagery Intelligence Relationship Specialty Start Date End Date Ta Rodriguez MD [address] [place] [address] PCP - General Family Medicine 01/09/23 Edwin Boone NP [address] [place] [address] Nurse Practitioner Pulmonary Disease 06/29/23 Angela Cummings MD [address] [place] [address] Referring Physician Dermatology 05/28/24 Matti Goff DO [address] [place] [address] Otolaryngology 05/28/24 Goals (unrecognized section and content) Goals may be documented in a n alternate sectionGoals may be documented in an alternate sectionGoals may be documented in an alternate section Reason for Visit (unrecogniz ed section and content) Reason Comments Skin Check Reason Comments Post-op Reason Comments Cancer 1 month recheck left cheek/neck FOR RECORDS PERTAINING TO PATIENTS WHO ARE [...] BE BASED ON THE PRIMARY CLINICAL RECORDS. [employer] provides no warranty or guarantee of the accuracy or completeness of information in this document.
[2025-01-31 07:12] LABS: Basophils Percent Auto 0.4 % (0.2-2.0); Eosinophils Absolute Auto 0.1 10^3/uL (0.0-0.7); Eosinophils Percent Auto 1.1 % (0.9-7.0); Hematocrit 41.5 % (42.0-54.0); Hemoglobin 14.3 g/dL (14.0-18.0); Immature Granulocytes Abs Auto 0.01 10^3/uL (0.00-0.03); Immature Granulocytes Pct Auto 0.2 % (0.0-0.5); Lymphocytes Percent Auto 43.1 % (20.5-60.0); Mean Corpuscular HGB Conc 34.5 g/dL (29.9-35.2); Mean Corpuscular Hemoglobin 31.8 pg (25.9-34.0); Mean Corpuscular Volume 92.4 fL (80.0-94.0); Monocytes Absolute Auto 0.5 10^3/uL (0.3-0.8); Monocytes Percent Auto 11.4 % (1.7-12.0); Neutrophils Percent Auto 43.8 % (43.0-75.0); Platelet Count 172 10^3/uL (150-450); Red Blood Count 4.49 10^6/uL (4.70-6.10); Red Cell Distribution Width 12.9 % (11.0-15.0); White Blood Count 4.6 10^3/uL (4.0-11.0)
[2025-01-31 07:37] LABS: Alanine Aminotransferase 59 U/L (16-63); Albumin Level 3.6 g/dL (3.4-5.0); Alkaline Phosphatase 59 U/L (46-116); Anion Gap 9.3; Aspartate Amino Transferase 35 U/L (15-37); Bilirubin Total 0.3 mg/dL (0.2-1.0); Calcium 8.9 mg/dL (8.5-10.1); Chloride 105 mmol/L (98-107); Chol HDL Ratio 3.4; Cholesterol 177 mg/dL (<=200); Estimated GFR (African America >60 (>=60 mL/min/1.73m^2); Estimated GFR (Non-African Ame >60 (>=60 mL/min/1.73m^2); Globulin 3.5 g/dL; Glucose 108 mg/dL (74-106); HDL Cholesterol 52 mg/dL (40-60); LDL Cholesterol Calculated 99.6 mg/dL; Potassium 4.3 mmol/L (3.5-5.1); Sodium 142 mmol/L (136-145); Thyroid Stimulating Hormone 2.167 uIU/mL (0.358-3.740); Total Protein 7.1 g/dL (6.4-8.2); Triglycerides 127 mg/dL (<=150); VLDL CHOLESTEROL 25.4 mg/dL
[2025-01-31 10:37] LABS: Free T4 0.99 ng/dL (0.76-1.46)
[2025-02-01 06:42] LABS: Vitamin B12 650 pg/mL (232-1245)
== END 2025-01-31 07:00 | disposition home or self-care (01) ==
LOC: LAB 06:59
PROVIDERS: PCP Family Medicine; Visit Provider Family Medicine
DX: Z00.00 Encounter for general adult medical examination without abnormal findings (principal); Z13.29 Encounter for screening for other suspected endocrine disorder; Z13.21 Encounter for screening for nutritional disorder; Z13.220 Encounter for screening for lipoid disorders; Z12.11 Encounter for screening for malignant neoplasm of colon
CPT/HCPCS: 36415; 80053; 80061; 82306; 82607; 84439; 84443; 85025

== ENCOUNTER 2025-02-18 15:54 | Outpatient (OUT) | payer BC, SELFPAY ==
[2025-02-18 16:34] LABS: Estimated Average Glucose 126 mg/dL
== END 2025-02-18 15:55 | disposition home or self-care (01) ==
PROVIDERS: PCP Family Medicine; Visit Provider Nurse Practitioner
DX: Z12.5 Encounter for screening for malignant neoplasm of prostate (principal); R73.01 Impaired fasting glucose
CPT/HCPCS: 36415; 83036; G0103